=== PATIENT | male | born 1980 | race Two or more races ===

== ENCOUNTER 2020-12-02 10:19 | Inpatient (IN) | payer OTHER ==
[2020-12-02] MEDS ORDERED: ACETAMINOPHEN 1000 MG/100 ML VIAL (NON FORMULARY) IVPB ONE (11:57)
[2020-12-02] MEDS ORDERED: ONDANSETRON 4 MG/2 ML VIAL IVPUSH ONE ×2 (11:57→16:10)
[2020-12-02] MEDS ORDERED: SODIUM CHLORIDE 1,000 ML IV STA (11:57)
[2020-12-02] MEDS ORDERED: ONDANSETRON 4 MG/2 ML VIAL ONE ×2 (12:19→16:21)
[2020-12-02] MEDS ORDERED: ACETAMINOPHEN INJECTION 100 ML IVPB ONE ×2 (12:19→17:38)
[2020-12-02 12:34] LABS: BASO % 0.5 % (0-2.0); EOS % 0.1 % (0-4.5); HEMATOCRIT 51.4 % (35.4-49); HEMOGLOBIN 17.8 GM/dL (11.7-16.9); LYMPH % 15.6 % (8-40); MCH 34.4 pg (25.7-33.7); MCHC 34.7 g/dl (32.0-35.9); MEAN CELL VOLUME 99.1 fl (80-96); MEAN PLT VOLUME 8.7 fl (7.5-11.1); MONO % 6.8 % (3.8-10.2); PLATELET COUNT 201 K/MM3 (134-434); RBC 5.19 M/mm3 (4.00-5.60); RDW 14.1 % (11.9-15.9); WHITE BLOOD COUNT 8.9 K/mm3 (4.0-10.0)
[2020-12-02 12:44] LABS: INR 0.94 (0.83-1.09); PROTHROMBIN TIME (PATIENT) 11.4 SEC (9.7-13.0)
[2020-12-02 12:53] LABS: CHLORIDE 89 mmol/L (98-107); POTASSIUM 3.5 mmol/L (3.5-5.1); SODIUM 134 mmol/L (136-145)
[2020-12-02 13:00] LABS: ALBUMIN 4.4 g/dl (3.4-5.0); ANION GAP 13 MMOL/L (8-16); CALCIUM 10.2 mg/dL (8.5-10.1); CO2 32 mmol/L (21-32); GLUCOSE,RANDOM 91 mg/dL (74-106)
[2020-12-02 13:01] LABS: BLOOD UREA NITROGEN 20.7 mg/dL (7-18)
[2020-12-02 13:03] LABS: SGOT/AST 781 U/L (15-37); SGPT/ALT 458 U/L (13-61)
[2020-12-02 13:04] LABS: CREATININE 1.3 mg/dL (0.55-1.3)
[2020-12-02 13:05] LABS: BILIRUBIN,TOTAL 1.2 mg/dL (0.2-1); TOT PROT 8.4 g/dl (6.4-8.2)
[2020-12-02 13:06] LABS: ALK PHOS 99 U/L (45-117)
[2020-12-02] MEDS ORDERED: POTASSIUM CHLORIDE 20 MEQ in LACTATED RINGERS SOLUTION 1,000 ML IV ONE (15:00)
[2020-12-02] MEDS ORDERED: morphine CARPU-JECT 4 MG/1 ML DISP.SYRIN IVPUSH ONE (16:10)
[2020-12-02] MEDS ORDERED: LACTATED RINGERS SOLUTION 1,000 ML/1,000 ML INFUS.BAG IV SCH ×2 (16:15→16:17)
[2020-12-02] MEDS ORDERED: morphine SULFATE 4 MG/ML VIAL ONE (16:21)
[2020-12-02 16:50] LABS: POTASSIUM 3.4 mmol/L (3.5-5.1)
[2020-12-03 01:02] LABS: MAGNESIUM 2.2 mg/dL (1.8-2.4)
[2020-12-03] MEDS ORDERED: PANTOPRAZOLE 40 MG TABLET ONE (01:58)
[2020-12-03] MEDS: PANTOPRAZOLE 40 MG TABLET PO ONE ×2 (02:00→02:39)
[2020-12-03] MEDS: SODIUM CHLORIDE 1,000 ML IV SCH (03:34)
[2020-12-03 03:38] LABS: ALBUMIN 4.1 g/dl (3.4-5.0)
[2020-12-03 03:41] LABS: BILIRUBIN,DIRECT 0.5 mg/dL (0.0-0.2)
[2020-12-03 03:43] LABS: TOT PROT 7.6 g/dl (6.4-8.2)
[2020-12-03 04:00] VITALS: BMI 25.0
[2020-12-03 04:06] LABS: BASO % 0.2 % (0-2.0); EOS % 0.5 % (0-4.5); HEMATOCRIT 48.3 % (35.4-49); HEMOGLOBIN 16.4 GM/dL (11.7-16.9); MCHC 34.1 g/dl (32.0-35.9); MEAN CELL VOLUME 99.9 fl (80-96); MEAN PLT VOLUME 9.2 fl (7.5-11.1); MONO % 8.2 % (3.8-10.2); NEUT % 74.1 % (42.8-82.8); PLATELET COUNT 185 K/MM3 (134-434); RBC 4.83 M/mm3 (4.00-5.60); RDW 14.1 % (11.9-15.9); WHITE BLOOD COUNT 9.3 K/mm3 (4.0-10.0)
[2020-12-03] MEDS: KCL 10 MEQ IVPB 10 MEQ/100 ML INFUS.BAG IVPB SCH ×3 (04:40→12:41)
[2020-12-03 06:11] LABS: URINE APPEARANCE CLEAR; URINE BILIRUBIN SMALL (NEGATIVE); URINE COLOR DK YELLOW; URINE GLUCOSE (UA) NEGATIVE (NEGATIVE)
[2020-12-03 06:12] LABS: PH,URINE 7.5 (5.0-8.0); URINE KETONE 40 mg/dl (NEGATIVE); URINE LEUK ESTERASE NEGATIVE (NEGATIVE); URINE NITRITE NEGATIVE (NEGATIVE); URINE PROTEIN TRACE (NEGATIVE); URINE UROBILINOGEN 4.0 E.U/dl mg/dL (0.2-1.0)
[2020-12-03 06:13] LABS: HYALINE CASTS 0 /uL (0-3.1); URINE BACTERIA 57.3 /uL (0-1359); URINE RBC 32 /uL (0-23.9); URINE WBC 5.5 /uL (0-25.8)
[2020-12-03] MEDS: POTASSIUM CHLORIDE 10 MEQ PREMIX IVPB (POTASSIUM RIDER) IVPB SCH (07:31)
[2020-12-03 09:18] LABS: BASO % 0.4 % (0-2.0); EOS % 0.6 % (0-4.5); HEMATOCRIT 44.1 % (35.4-49); HEMOGLOBIN 15.2 GM/dL (11.7-16.9); LYMPH % 21.5 % (8-40); MCH 34.5 pg (25.7-33.7); MCHC 34.5 g/dl (32.0-35.9); MEAN CELL VOLUME 99.9 fl (80-96); MEAN PLT VOLUME 8.6 fl (7.5-11.1); MONO % 9.5 % (3.8-10.2); PLATELET COUNT 177 K/MM3 (134-434); RBC 4.41 M/mm3 (4.00-5.60); WHITE BLOOD COUNT 7.6 K/mm3 (4.0-10.0)
[2020-12-03 09:20] LABS: ALBUMIN 3.4 g/dl (3.4-5.0)
[2020-12-03 09:21] LABS: BLOOD UREA NITROGEN 16.1 mg/dL (7-18); MAGNESIUM 2.4 mg/dL (1.8-2.4)
[2020-12-03 09:24] LABS: PHOSPHOROUS 3.5 mg/dL (2.5-4.9)
[2020-12-03 09:25] LABS: BILIRUBIN,TOTAL 0.9 mg/dL (0.2-1); TOT PROT 6.5 g/dl (6.4-8.2)
[2020-12-03 09:27] LABS: CHOLESTEROL 153 mg/dL (50-200)
[2020-12-03 09:28] LABS: LDL CHOLESTEROL (ONLY SJRH) 52 mg/dL (5-100); TRIGLYCERIDES 87 mg/dL (0-150)
[2020-12-03 09:31] LABS: HDL CHOLESTEROL 73 mg/dL (40-60)
[2020-12-03] MEDS ORDERED: CEFTRIAXONE 1 GM in DEXTROSE 5%-WATER - 50 ML IVPB SCH (10:00)
[2020-12-03] MEDS ORDERED: PANTOPRAZOLE SODIUM 40 MG VIAL IVPUSH SCH (10:00)
[2020-12-03] MEDS ORDERED: DEXTROSE 5%-WATER - 50 ML IVPB ONE (10:21)
[2020-12-03] MEDS ORDERED: cefTRIAXone SODIUM 1 GM VIAL ONE (10:21)
[2020-12-03] MEDS: ENOXAPARIN NA (PORCINE) 40 MG/0.4 ML DISP.SYRIN SQ SCH (10:45)
[2020-12-04] MEDS: SODIUM CHLORIDE 1,000 ML IV SCH ×2 (00:20→14:12)
[2020-12-04 08:40] LABS: HEMATOCRIT 42.2 % (35.4-49); HEMOGLOBIN 14.7 GM/dL (11.7-16.9); MCH 34.5 pg (25.7-33.7); MCHC 34.7 g/dl (32.0-35.9); MEAN CELL VOLUME 99.5 fl (80-96); MEAN PLT VOLUME 8.9 fl (7.5-11.1); PLATELET COUNT 171 K/MM3 (134-434); RBC 4.24 M/mm3 (4.00-5.60); RDW 13.9 % (11.9-15.9); WHITE BLOOD COUNT 6.4 K/mm3 (4.0-10.0)
[2020-12-04 08:51] LABS: POTASSIUM 3.8 mmol/L (3.5-5.1)
[2020-12-04] MEDS: ENOXAPARIN NA (PORCINE) 40 MG/0.4 ML DISP.SYRIN SQ SCH (09:02)
[2020-12-04 09:08] LABS: ALBUMIN 3.1 g/dl (3.4-5.0)
[2020-12-04 09:10] LABS: CALCIUM 8.6 mg/dL (8.5-10.1)
[2020-12-04 09:11] LABS: BILIRUBIN,TOTAL 0.8 mg/dL (0.2-1); CREATININE 0.9 mg/dL (0.55-1.3); TOT PROT 5.9 g/dl (6.4-8.2)
[2020-12-04 14:12] LABS: HEP B CORE AB, TOT Negative (Negative)
[2020-12-05] MEDS: SODIUM CHLORIDE 1,000 ML IV SCH ×2 (09:00→14:59)
[2020-12-05 09:31] LABS: HEMATOCRIT 43.2 % (35.4-49); HEMOGLOBIN 14.8 GM/dL (11.7-16.9); MCH 34.2 pg (25.7-33.7); MCHC 34.2 g/dl (32.0-35.9); MEAN PLT VOLUME 9.4 fl (7.5-11.1); PLATELET COUNT 172 K/MM3 (134-434); RBC 4.32 M/mm3 (4.00-5.60); RDW 13.8 % (11.9-15.9); WHITE BLOOD COUNT 6.9 K/mm3 (4.0-10.0)
[2020-12-05] MEDS: ENOXAPARIN NA (PORCINE) 40 MG/0.4 ML DISP.SYRIN SQ SCH (09:36)
[2020-12-05 11:30] LABS: POTASSIUM 3.8 mmol/L (3.5-5.1)
[2020-12-05 11:35] LABS: ALBUMIN 3.1 g/dl (3.4-5.0)
[2020-12-05 11:36] LABS: BLOOD UREA NITROGEN 9.1 mg/dL (7-18)
[2020-12-05 11:39] LABS: CREATININE 0.9 mg/dL (0.55-1.3)
[2020-12-05 11:40] LABS: BILIRUBIN,TOTAL 0.6 mg/dL (0.2-1)
[2020-12-05 11:42] LABS: CALCIUM 8.5 mg/dL (8.5-10.1)
[2020-12-05] MEDS ORDERED: PT OWN MED DRAWER 7, Y5N ONE (16:39)
[2020-12-05] MEDS ORDERED: MAG HYDROX/AL HYDROX/SIMETH 30 ML UNIT-DOSE CUP PO ONE ×2 (20:37→21:00)
[2020-12-06] MEDS: SODIUM CHLORIDE 1,000 ML IV SCH (08:58)
[2020-12-06] MEDS: ENOXAPARIN NA (PORCINE) 40 MG/0.4 ML DISP.SYRIN SQ SCH (09:05)
[2020-12-06 09:50] LABS: BASO % 0.4 % (0-2.0); EOS % 0.5 % (0-4.5); HEMATOCRIT 46.3 % (35.4-49); HEMOGLOBIN 15.9 GM/dL (11.7-16.9); LYMPH % 25.9 % (8-40); MCH 34.1 pg (25.7-33.7); MCHC 34.3 g/dl (32.0-35.9); MEAN CELL VOLUME 99.2 fl (80-96); MEAN PLT VOLUME 9.1 fl (7.5-11.1); MONO % 11.5 % (3.8-10.2); NEUT % 61.7 % (42.8-82.8); PLATELET COUNT 184 K/MM3 (134-434); RBC 4.67 M/mm3 (4.00-5.60); RDW 13.8 % (11.9-15.9); WHITE BLOOD COUNT 6.9 K/mm3 (4.0-10.0)
[2020-12-06 10:13] LABS: ALBUMIN 3.5 g/dl (3.4-5.0); BLOOD UREA NITROGEN 8.7 mg/dL (7-18); CALCIUM 8.7 mg/dL (8.5-10.1)
[2020-12-06 10:16] LABS: BILIRUBIN,TOTAL 0.5 mg/dL (0.2-1); TOT PROT 6.7 g/dl (6.4-8.2)
[2020-12-06] MEDS ORDERED: PANTOPRAZOLE 20 MG TABLET PO SCH (11:15)
[2020-12-06 15:30] VITALS: BP 121/77; PULSE 86; TEMP 98.1
== END 2020-12-06 16:00 | disposition home or self-care (01) | DRG 249 ==
LOC: JER 10:19 → JERBED 22:52 → J5S 12-03 03:16
PROVIDERS: ADMIT Internal Medicine; ATTEND Internal Medicine
DX: K52.9 Noninfective gastroenteritis and colitis, unspecified (principal); E87.6 Hypokalemia; E86.0 Dehydration; K76.0 Fatty (change of) liver, not elsewhere classified; R74.8 Abnormal levels of other serum enzymes
CPT/HCPCS: 36415; 74177-TC; 76705-TC; 80053; 80061; 80074; 80076; 80307; 81003; 82550; 82553; 83690; 83721; 83735; 84100; 84132; 84484; 85025; 85027; 85610; 86704; 86706; 86707; 86708; 86709; 86769; 86803; 87045; 87046; 87086; 87177; 87209; 87340; 93005; 93010; 99285-25; C9803; J0131; Q9967; U0003

== ENCOUNTER 2022-08-15 11:12 | Observation (INO) | payer OTHER ==
[2022-08-15] MEDS ORDERED: MAG HYDROX/AL HYDROX/SIMETH -MYLANTA- ORAL SUSPENSION PO ONE (14:39)
[2022-08-15] MEDS ORDERED: ACETAMINOPHEN 1000 MG/100 ML BAG IVPB ONE (14:39)
[2022-08-15] MEDS ORDERED: ONDANSETRON 4 MG TABLET PO ONE (14:39)
[2022-08-15] MEDS ORDERED: FAMOTIDINE 20 MG TABLET PO ONE (14:39)
[2022-08-15] MEDS ORDERED: SODIUM CHLORIDE 0.9% 500 ML INFUS.BAG IV ONE (14:40)
[2022-08-15 15:57] LABS: HEMATOCRIT 51.8 % (35.4-49); MCH 34.4 pg (25.7-33.7); MCHC 34.8 g/dl (32.0-35.9); MEAN CELL VOLUME 98.7 fl (80-96); MEAN PLT VOLUME 8.1 fl (7.5-11.1); PLATELET COUNT 256 10^3/uL (134-434); RBC 5.25 M/mm3 (4.00-5.60); RDW 14.6 % (11.9-15.9)
[2022-08-15 16:18] LABS: ALBUMIN 4.2 g/dl (3.4-5.0); CALCIUM 9.7 mg/dL (8.5-10.1)
[2022-08-15 16:19] LABS: BLOOD UREA NITROGEN 19.4 mg/dL (7-18)
[2022-08-15 16:21] LABS: CREATININE 1.3 mg/dL (0.55-1.3)
[2022-08-15] MEDS ORDERED: ACETAMINOPHEN INJECTION 100 ML IVPB ONE ×2 (16:35→21:16)
[2022-08-15] MEDS ORDERED: ONDANSETRON 4 MG/2 ML VIAL ONE (16:35)
[2022-08-15] MEDS ORDERED: MAG HYDROX/AL HYDROX/SIMETH 30 ML UNIT-DOSE CUP ONE (16:35)
[2022-08-15] MEDS ORDERED: FAMOTIDINE 20 MG/50 ML IVPB 20 MG/50 ML MG IVPB ONE (16:36)
[2022-08-15] MEDS ORDERED: METOCLOPRAMIDE HCL INJECTION 10 MG/2 ML VIAL IVPUSH ONE (17:58)
[2022-08-15] MEDS ORDERED: LACTATED RINGERS SOLUTION 1000 ML INFUS.BAG IV ONE (17:58)
[2022-08-15] MEDS ORDERED: METOCLOPRAMIDE HCL INJECTION 10 MG/2 ML VIAL ONE (19:06)
[2022-08-15] MEDS ORDERED: TRIMETHOBENZAMIDE HCL 200MG/2ML INJ IM PRN (20:20)
[2022-08-15] MEDS: ACETAMINOPHEN 1000 MG/100 ML BAG IVPB PRN (21:20)
[2022-08-16] MEDS ORDERED: traMADol HCL 50 MG TABLET PO ONE (00:54)
[2022-08-16] MEDS: LACTATED RINGERS SOLUTION 1,000 ML IV SCH ×2 (00:58→22:30)
[2022-08-16] MEDS ORDERED: ACETAMINOPHEN INJECTION 100 ML IVPB ONE (04:21)
[2022-08-16] MEDS: ACETAMINOPHEN 1000 MG/100 ML BAG IVPB PRN (04:24)
[2022-08-16] MEDS ORDERED: PANTOPRAZOLE 40 MG TABLET PO ONE (09:03)
[2022-08-16] MEDS ORDERED: ENOXAPARIN NA (PORCINE) 40 MG/0.4 ML DISP.SYRIN SQ ONE (09:04)
[2022-08-16] MEDS: ENOXAPARIN NA (PORCINE) 40 MG/0.4 ML DISP.SYRIN SQ SCH (09:12)
[2022-08-16] MEDS: PANTOPRAZOLE 40 MG TABLET PO SCH (09:12)
[2022-08-16 10:17] LABS: BASO % 0.2 % (0-2.0); EOS % 0.5 % (0-4.5); HEMATOCRIT 44.5 % (35.4-49); HEMOGLOBIN 15.4 GM/dL (11.7-16.9); LYMPH % 23.9 % (8-40); MCH 34.7 pg (25.7-33.7); MCHC 34.7 g/dl (32.0-35.9); MEAN PLT VOLUME 8.4 fl (7.5-11.1); MONO % 8.5 % (3.8-10.2); NEUT % 66.9 % (42.8-82.8); PLATELET COUNT 186 10^3/uL (134-434); RBC 4.46 M/mm3 (4.00-5.60); RDW 14.2 % (11.9-15.9); WHITE BLOOD COUNT 7.7 K/mm3 (4.0-10.0)
[2022-08-16 10:46] LABS: CHLORIDE 99 mmol/L (98-107); SODIUM 138 mmol/L (136-145)
[2022-08-16 11:08] LABS: ANION GAP 11 MMOL/L (8-16); BLOOD UREA NITROGEN 19.1 mg/dL (7-18); CALCIUM 8.7 mg/dL (8.5-10.1); CO2 28 mmol/L (21-32); GLUCOSE,RANDOM 83 mg/dL (74-106); MAGNESIUM 2.1 mg/dL (1.8-2.4)
[2022-08-16 11:11] LABS: CREATININE 1.1 mg/dL (0.55-1.3); PHOSPHOROUS 2.1 mg/dL (2.5-4.9); SGOT/AST 152 U/L (15-37); SGPT/ALT 120 U/L (13-61)
[2022-08-16 11:12] LABS: BILIRUBIN,TOTAL 1.2 mg/dL (0.2-1); TOT PROT 6.1 g/dl (6.4-8.2)
[2022-08-16 11:14] LABS: ALK PHOS 66 U/L (45-117)
[2022-08-16 11:58] LABS: ALBUMIN 3.2 g/dl (3.4-5.0)
[2022-08-16 12:35] LABS: BILIRUBIN,DIRECT 0.4 mg/dL (0.0-0.2)
[2022-08-16 17:34] VITALS: BMI 28.5
[2022-08-16 18:56] LABS: EPI CELLS 3 /uL (0-25.1); HYALINE CASTS 0 /uL (0-3.1); URINE APPEARANCE CLEAR; URINE BACTERIA 26 /uL (0-1359); URINE BILIRUBIN NEGATIVE (NEGATIVE); URINE COLOR YELLOW; URINE GLUCOSE (UA) NEGATIVE (NEGATIVE); URINE KETONE 1+ (NEGATIVE); URINE LEUK ESTERASE NEGATIVE (NEGATIVE); URINE NITRITE NEGATIVE (NEGATIVE); URINE PROTEIN 1+ (NEGATIVE); URINE RBC 15 /uL (0-23.9); URINE WBC 5 /uL (0-25.8)
[2022-08-17] MEDS: PANTOPRAZOLE 40 MG TABLET PO SCH (09:58)
[2022-08-17 11:35] LABS: BASO % 0.3 % (0-2.0); EOS % 0.6 % (0-4.5); HEMOGLOBIN 15.4 GM/dL (11.7-16.9); LYMPH % 21.1 % (8-40); MCH 33.9 pg (25.7-33.7); MCHC 34.1 g/dl (32.0-35.9); MEAN CELL VOLUME 99.3 fl (80-96); MEAN PLT VOLUME 8.3 fl (7.5-11.1); MONO % 8.4 % (3.8-10.2); NEUT % 69.6 % (42.8-82.8); PLATELET COUNT 198 10^3/uL (134-434); RBC 4.54 M/mm3 (4.00-5.60); RDW 14.4 % (11.9-15.9)
[2022-08-17 11:41] LABS: INR 0.98 (0.83-1.09); PROTHROMBIN TIME (PATIENT) 11.3 SEC (9.7-13.0)
[2022-08-17 13:02] LABS: ERYTHROCYTE SEDIMENTATION RATE 2 mm/hr (0-10)
[2022-08-18] MEDS: LACTATED RINGERS SOLUTION 1,000 ML IV SCH ×2 (00:22→15:51)
[2022-08-18] MEDS: PANTOPRAZOLE 40 MG TABLET PO SCH (09:55)
[2022-08-18] MEDS: ENOXAPARIN NA (PORCINE) 40 MG/0.4 ML DISP.SYRIN SQ SCH (10:46)
[2022-08-18 11:23] LABS: BASO % 0.4 % (0-2.0); EOS % 0.6 % (0-4.5); HEMATOCRIT 46.4 % (35.4-49); HEMOGLOBIN 15.7 GM/dL (11.7-16.9); MCH 33.9 pg (25.7-33.7); MCHC 33.8 g/dl (32.0-35.9); MEAN PLT VOLUME 8.1 fl (7.5-11.1); MONO % 14.1 % (3.8-10.2); NEUT % 58.9 % (42.8-82.8); PLATELET COUNT 186 10^3/uL (134-434); RBC 4.64 M/mm3 (4.00-5.60); RDW 14.4 % (11.9-15.9); WHITE BLOOD COUNT 6.3 K/mm3 (4.0-10.0)
[2022-08-18 12:03] LABS: BLOOD UREA NITROGEN 12.8 mg/dL (7-18); CALCIUM 8.7 mg/dL (8.5-10.1)
[2022-08-18 12:07] LABS: BILIRUBIN,TOTAL 0.7 mg/dL (0.2-1); CREATININE 1.1 mg/dL (0.55-1.3); TOT PROT 5.8 g/dl (6.4-8.2)
[2022-08-18] MEDS ORDERED: BISACODYL 5 MG TABLET.DR (FP) PO ONE (16:00)
[2022-08-18] MEDS ORDERED: PEG 3350/NA SULF BICARB CL/KCL 4000 ML SOLN.RECON PO ONE (17:00)
[2022-08-19] MEDS ORDERED: KETAMINE HCL 500 MG/10 ML VIAL ONE (07:42)
[2022-08-19] MEDS: PANTOPRAZOLE 40 MG TABLET PO SCH (10:53)
[2022-08-19] MEDS: LACTATED RINGERS SOLUTION 1,000 ML IV SCH (13:09)
[2022-08-19 18:35] LABS: BASO % 0.3 % (0-2.0); EOS % 0.1 % (0-4.5); HEMATOCRIT 47.6 % (35.4-49); HEMOGLOBIN 16.2 GM/dL (11.7-16.9); LYMPH % 8.3 % (8-40); MCH 33.6 pg (25.7-33.7); MEAN CELL VOLUME 98.8 fl (80-96); MEAN PLT VOLUME 8.3 fl (7.5-11.1); MONO % 8.9 % (3.8-10.2); NEUT % 82.4 % (42.8-82.8); PLATELET COUNT 213 10^3/uL (134-434); RBC 4.82 M/mm3 (4.00-5.60); RDW 14.1 % (11.9-15.9); WHITE BLOOD COUNT 12.8 K/mm3 (4.0-10.0)
[2022-08-19 18:41] LABS: INR 1.15 (0.83-1.09); PROTHROMBIN TIME (PATIENT) 13.3 SEC (9.7-13.0)
[2022-08-19 18:51] LABS: ALBUMIN 3.2 g/dl (3.4-5.0); CALCIUM 8.5 mg/dL (8.5-10.1)
[2022-08-19 18:53] LABS: BLOOD UREA NITROGEN 8.9 mg/dL (7-18); CALCIUM 8.5 mg/dL (8.5-10.1)
[2022-08-19 18:54] LABS: ALBUMIN 3.2 g/dl (3.4-5.0); BLOOD UREA NITROGEN 9.1 mg/dL (7-18)
[2022-08-19 18:55] LABS: CREATININE 1.2 mg/dL (0.55-1.3)
[2022-08-19 18:56] LABS: BILIRUBIN,DIRECT 0.3 mg/dL (0.0-0.2); BILIRUBIN,TOTAL 0.6 mg/dL (0.2-1); CREATININE 1.2 mg/dL (0.55-1.3); TOT PROT 6.2 g/dl (6.4-8.2)
[2022-08-19 18:58] LABS: TOT PROT 6.2 g/dl (6.4-8.2)
[2022-08-20] MEDS: LACTATED RINGERS SOLUTION 1,000 ML IV SCH (01:00)
[2022-08-20 04:54] VITALS: TEMP 98.3
[2022-08-20] MEDS: ENOXAPARIN NA (PORCINE) 40 MG/0.4 ML DISP.SYRIN SQ SCH (09:54)
[2022-08-20] MEDS: PANTOPRAZOLE 40 MG TABLET PO SCH (09:55)
[2022-08-20 09:59] VITALS: BP 137/74; PULSE 82; RESP 18
[2022-08-20 10:25] LABS: BASO % 0.2 % (0-2.0); EOS % 0.8 % (0-4.5); HEMATOCRIT 48.7 % (35.4-49); HEMOGLOBIN 16.6 GM/dL (11.7-16.9); LYMPH % 22.8 % (8-40); MCH 33.9 pg (25.7-33.7); MCHC 34.1 g/dl (32.0-35.9); MEAN CELL VOLUME 99.5 fl (80-96); MEAN PLT VOLUME 8.5 fl (7.5-11.1); MONO % 9.3 % (3.8-10.2); NEUT % 66.9 % (42.8-82.8); PLATELET COUNT 228 10^3/uL (134-434); RDW 14.1 % (11.9-15.9); WHITE BLOOD COUNT 9.1 K/mm3 (4.0-10.0)
[2022-08-24 08:06] LABS: CREATININE, UR 1.16 g/L (0.30-3.00)
== END 2022-08-20 13:21 | disposition home or self-care (01) ==
LOC: JER 11:12 → INTOOBSV 18:06 → JERBED 18:06 → J6S 08-16 17:18
PROVIDERS: ADMIT Internal Medicine; ATTEND Internal Medicine
PROC: 0DB98ZX Excision of Duodenum, Via Natural or Artificial Opening Endoscopic, Diagnostic (ICD-10-PCS; principal; 2022-08-15)
PROC: 3E033NZ Introduction of Analgesics, Hypnotics, Sedatives into Peripheral Vein, Percutaneous Approach (ICD-10-PCS; 2022-08-15)
PROC: 3E0337Z Introduction of Electrolytic and Water Balance Substance into Peripheral Vein, Percutaneous Approach (ICD-10-PCS; 2022-08-15)
PROC: 3E033GC Introduction of Other Therapeutic Substance into Peripheral Vein, Percutaneous Approach (ICD-10-PCS; 2022-08-15)
PROC: 3E03329 Introduction of Other Anti-infective into Peripheral Vein, Percutaneous Approach (ICD-10-PCS; 2022-08-15)
PROC: 3E023GC Introduction of Other Therapeutic Substance into Muscle, Percutaneous Approach (ICD-10-PCS; 2022-08-15)
DX: K21.9 Gastro-esophageal reflux disease without esophagitis (principal); K29.70 Gastritis, unspecified, without bleeding; E87.8 Other disorders of electrolyte and fluid balance, not elsewhere classified; Z29.8 Encounter for other specified prophylactic measures; R10.9 Unspecified abdominal pain; R79.89 Other specified abnormal findings of blood chemistry; D75.89 Other specified diseases of blood and blood-forming organs; K76.0 Fatty (change of) liver, not elsewhere classified; K52.9 Noninfective gastroenteritis and colitis, unspecified
CPT/HCPCS: 0241U-QW; 36415; 74177-TC; 76705-TC; 80048; 80053; 80076; 81003; 82248; 82525; 82550; 82553; 82570; 82607; 82728; 82746; 83516; 83540; 83550; 83690; 83735; 84100; 85025; 85027; 85610; 85651; 86038; 86140; 86704; 86709; 86803; 86850; 86900; 86901; 87045; 87046; 87205; 87209; 87324; 87340; 87449; 87517; 88305-TC; 93005; 93010; 96361; 96365; 96372; 96375; 96376; 99285-25; G0378; Q9967

== ENCOUNTER 2022-10-24 09:59 | Observation (INO) | payer OTHER ==
[2022-10-24] MEDS ORDERED: SODIUM CHLORIDE 1,000 ML IV ONE ×2 (10:38→12:39)
[2022-10-24] MEDS ORDERED: FAMOTIDINE 20 MG/50 ML IVPB 20 MG in PREMIX 50 IVPB ONE (10:49)
[2022-10-24] MEDS ORDERED: MAG HYDROX/AL HYDROX/SIMETH -MYLANTA- ORAL SUSPENSION PO ONE (10:49)
[2022-10-24] MEDS ORDERED: MAG HYDROX/AL HYDROX/SIMETH 30 ML UNIT-DOSE CUP ONE (11:03)
[2022-10-24] MEDS ORDERED: FAMOTIDINE 20 MG/50 ML IVPB 20 MG/50 ML MG IVPB ONE (11:03)
[2022-10-24 11:56] LABS: ALBUMIN 4.1 g/dl (3.4-5.0); BILIRUBIN,TOTAL 2.1 mg/dl (0.2-1); CALCIUM 9.4 mg/dl (8.5-10); CREATININE 1.2 mg/dl (0.55-1.3); TOT PROT 7.4 g/dl (6.4-8.2)
[2022-10-24 12:34] LABS: HEMATOCRIT 50.5 % (35.4-49); HEMOGLOBIN 17.7 G/dL (11.7-16.9); MCH 35.5 pg (25.7-33.7); MEAN CELL VOLUME 101.5 fl (80-96); MEAN PLT VOLUME 9.2 fl (7.5-11.1); PLATELET COUNT 192.6 10^3/uL (134-434); RBC 4.98 10^6/uL (4.00-5.60); RDW 14.1 % (11.9-15.9); WHITE BLOOD COUNT 10.3 10^3/uL (4.0-10.8)
[2022-10-24] MEDS ORDERED: LORazepam 2 MG/ML SDV VIAL IVPB ONE (12:36)
[2022-10-24 12:43] LABS: EPITHELIAL CELLS FEW /hpf; URINE MUCUS 1+
[2022-10-24] MEDS ORDERED: CEFTRIAXONE 1 GM in DEXTROSE 5%-WATER - 50 ML IVPB ONE (13:15)
[2022-10-24 13:16] LABS: VENOUS BASE EXCESS 6.4 mmol/L (-2-2); VENOUS O2 SATURATION 79.7 % (70-80); VENOUS PCO2 38.9 mmHg (38-52); VENOUS PH 7.503 (7.310-7.410)
[2022-10-24] MEDS ORDERED: cefTRIAXone SODIUM 1 GM VIAL ONE (13:31)
[2022-10-24] MEDS ORDERED: SODIUM CHLORIDE 1,000 ML IV SCH (16:15)
[2022-10-24 16:38] VITALS: BMI 27.8
[2022-10-24 21:06] LABS: OPIATES, URI NEGATIVE (NEGATIVE); URINE BARBITURATES NEGATIVE (NEGATIVE)
[2022-10-24 21:07] LABS: METHADONE, UR NEGATIVE (NEGATIVE); PHENCYCLIDINE,URINE NEGATIVE (NEGATIVE); URINE BENZODIAZEPINES NEGATIVE (NEGATIVE)
[2022-10-24 21:08] LABS: COCAINE, UR NEGATIVE (NEGATIVE)
[2022-10-24 21:13] LABS: URINE AMPHETAMINES NEGATIVE (NEGATIVE)
[2022-10-25 08:16] LABS: INR 1.03 (0.83-1.09); PROTHROMBIN TIME (PATIENT) 11.8 SEC (9.7-13.0)
[2022-10-25 08:24] LABS: ALBUMIN 3.3 g/dl (3.4-5.0); BILIRUBIN,TOTAL 1.2 mg/dl (0.2-1); CALCIUM 8.6 mg/dl (8.5-10); MAGNESIUM 2.1 mg/dL (1.8-2.4); PHOSPHOROUS 2.7 mg/dl (2.5-4.9)
[2022-10-25 09:13] LABS: BASO % 0.5 % (0-2.0); EOS % 0.6 % (0-4.5); HEMATOCRIT 42.9 % (35.4-49); LYMPH % 22.3 % (8-40); MCH 35.5 pg (25.7-33.7); MEAN CELL VOLUME 101.2 fl (80-96); MEAN PLT VOLUME 8.4 fl (7.5-11.1); MONO % 6.9 % (3.8-10.2); NEUT % 69.7 % (42.8-82.8); PLATELET COUNT 174 10^3/uL (134-434); RBC 4.24 M/mm3 (4.00-5.60); WHITE BLOOD COUNT 5.9 K/mm3 (4.0-10.0)
[2022-10-25] MEDS ORDERED: FOLIC ACID INJECTION - 1 MG, THIAMINE HCL 100 MG, MULTIVIT INJECTION ADULT 10 ML in SOD... IVPB ONE (09:35)
[2022-10-25] MEDS: SIMETHICONE 80 MG TAB.CHEW (FP) PO PRN (12:19)
[2022-10-25] MEDS ORDERED: POTASSIUM CHLORIDE TABS 20 MEQ TABLET.ER (FP) PO ONE (15:21)
[2022-10-25] MEDS ORDERED: SODIUM CHLORIDE 1,000 ML with POTASSIUM CHLORIDE 20 MEQ IV SCH (15:27)
[2022-10-26 05:58] VITALS: PULSE 82; RESP 16
[2022-10-26 08:04] LABS: ALBUMIN 3.1 g/dl (3.4-5.0); BILIRUBIN,TOTAL 0.9 mg/dl (0.2-1); CALCIUM 8.3 mg/dl (8.5-10); CREATININE 0.9 mg/dl (0.55-1.3); MAGNESIUM 1.9 mg/dL (1.8-2.4); PHOSPHOROUS 2.6 mg/dl (2.5-4.9); TOT PROT 5.8 g/dl (6.4-8.2)
[2022-10-26] MEDS ORDERED: PANTOPRAZOLE 40 MG TABLET PO SCH (10:00)
[2022-10-26 10:05] LABS: HEMATOCRIT 40.9 % (35.4-49); MCH 35.2 pg (25.7-33.7); MCHC 34.3 g/dl (32.0-35.9); MEAN CELL VOLUME 102.6 fl (80-96); MEAN PLT VOLUME 8.9 fl (7.5-11.1); PLATELET COUNT 161 10^3/uL (134-434); RBC 3.98 M/mm3 (4.00-5.60); RDW 14.7 % (11.9-15.9); WHITE BLOOD COUNT 5.9 K/mm3 (4.0-10.0)
[2022-10-26 10:16] VITALS: BP 126/85; TEMP 98.4
[2022-10-26] MEDS: SIMETHICONE 80 MG TAB.CHEW (FP) PO PRN (11:09)
== END 2022-10-26 14:28 | disposition home or self-care (01) ==
LOC: FER 09:59 → INTOOBSV 14:51 → UNDOADMOB 14:51 → FM/S 14:51
PROVIDERS: ADMIT Internal Medicine; ATTEND Nurse Practitioner Family
PROC: 3E03329 Introduction of Other Anti-infective into Peripheral Vein, Percutaneous Approach (ICD-10-PCS; principal; 2022-10-25)
PROC: 3E033NZ Introduction of Analgesics, Hypnotics, Sedatives into Peripheral Vein, Percutaneous Approach (ICD-10-PCS; 2022-10-25)
PROC: 3E0337Z Introduction of Electrolytic and Water Balance Substance into Peripheral Vein, Percutaneous Approach (ICD-10-PCS; 2022-10-25)
DX: S36.119A Unspecified injury of liver, initial encounter (principal); E87.1 Hypo-osmolality and hyponatremia; D75.1 Secondary polycythemia; E87.3 Alkalosis; Z29.8 Encounter for other specified prophylactic measures; Y84.9 Medical procedure, unspecified as the cause of abnormal reaction of the patient, or of later complication, without mention of misadventure at the time of the procedure; Y93.9 Activity, unspecified
CPT/HCPCS: 0241U-QW; 36415; 74177-TC; 76705-TC; 80053; 80307; 81003; 81015; 82010; 82248; 82550; 82553; 82570; 82728; 82803; 83516; 83540; 83550; 83735; 84100; 84156; 84439; 84443; 84484; 85025; 85027; 85610; 86038; 86704; 86705; 86708; 86709; 87086; 87517; 87522; 93005; 96361; 96365; 96367; 96375; 99285-25; G0378; G0480; Q9967

== ENCOUNTER 2023-04-11 12:31 | Inpatient (IN) | payer OTHER ==
[2023-04-11] MEDS ORDERED: SODIUM CHLORIDE 0.9% 500 ML INFUS.BAG IV ONE (12:48)
[2023-04-11] MEDS ORDERED: FAMOTIDINE 20 MG/50 ML IVPB 20 MG/50 ML MG IVPB ONE ×2 (12:48→13:40)
[2023-04-11] MEDS ORDERED: ONDANSETRON 4 MG/2 ML VIAL IVPUSH ONE (12:48)
[2023-04-11 12:58] VITALS: BMI 27.1
[2023-04-11] MEDS ORDERED: ONDANSETRON 4 MG/2 ML VIAL ONE (12:58)
[2023-04-11 13:54] LABS: HEMATOCRIT 51.4 % (35.4-49); HEMOGLOBIN 17.2 G/dL (11.7-16.9); MCH 35.4 pg (25.7-33.7); MCHC 33.5 g/dl (32.0-35.9); MEAN CELL VOLUME 105.7 fl (80-96); MEAN PLT VOLUME 8.5 fl (7.5-11.1); PLATELET COUNT 163.9 10^3/uL (134-434); RBC 4.86 10^6/uL (4.00-5.60); WHITE BLOOD COUNT 10.7 10^3/uL (4.0-10.8)
[2023-04-11 13:59] LABS: ALBUMIN 4.9 g/dl (3.4-5.0); BILIRUBIN,TOTAL 1.7 mg/dl (0.2-1); BLOOD UREA NITROGEN 16.8 mg/dl (7-18); CALCIUM 9.9 mg/dl (8.5-10.1); MAGNESIUM 1.7 mg/dL (1.8-2.4); POTASSIUM 3.2 mmol/L (3.5-5.1); SGOT/AST 71.6 U/L (15-37); SGPT/ALT 67.2 U/L (7-52); TOT PROT 7.3 g/dl (6.4-8.2)
[2023-04-11 14:05] LABS: PLATELET ESTIMATE ADEQUATE
[2023-04-11] MEDS ORDERED: MAG HYDROX/AL HYDROX/SIMETH 30 ML UNIT-DOSE CUP PO ONE (14:18)
[2023-04-11] MEDS ORDERED: LIDOCAINE VISCOUS 2% ORAL/TOP 15 ML UNIT-DOSE CUP MM ONE (14:18)
[2023-04-11] MEDS ORDERED: POTASSIUM CHLORIDE TABS 20 MEQ TABLET.ER (FP) PO ONE ×2 (14:18→14:23)
[2023-04-11] MEDS ORDERED: MAGNESIUM SULF 50% (8.12 MEQ/2 ML-1 GM VIAL) IVPB ONE (14:19)
[2023-04-11] MEDS ORDERED: MAG HYDROX/AL HYDROX/SIMETH 30 ML UNIT-DOSE CUP ONE (14:23)
[2023-04-11] MEDS ORDERED: LIDOCAINE VISCOUS 2% ORAL/TOP 15 ML UNIT-DOSE CUP ONE (14:23)
[2023-04-11] MEDS ORDERED: MAGNESIUM 1GM/D5W - 1 GM/100 ML IVPB IVPB ONE (14:24)
[2023-04-11] MEDS ORDERED: ONDANSETRON 4 MG/2 ML VIAL IVPUSH PRN (22:10)
[2023-04-11] MEDS ORDERED: DEXTROSE 5%-0.45% SALINE 1,000 ML IV SCH (22:15)
[2023-04-11] MEDS ORDERED: LIDOCAINE VISCOUS 2% ORAL/TOP 15 ML UNIT-DOSE CUP MM PRN (23:15)
[2023-04-11 23:23] LABS: EPITHELIAL CELLS FEW /hpf
[2023-04-11] MEDS: DEXTROSE 5%-0.45% SALINE 1,000 ML IV SCH (23:30)
[2023-04-12 00:34] LABS: URINE BARBITURATES NEGATIVE (NEGATIVE)
[2023-04-12 00:35] LABS: COCAINE, UR NEGATIVE (NEGATIVE); METHADONE, UR NEGATIVE (NEGATIVE); PHENCYCLIDINE,URINE NEGATIVE (NEGATIVE); URINE AMPHETAMINES NEGATIVE (NEGATIVE); URINE BENZODIAZEPINES NEGATIVE (NEGATIVE)
[2023-04-12 00:36] LABS: OPIATES, URI NEGATIVE (NEGATIVE)
[2023-04-12 09:02] LABS: ALBUMIN 4.1 g/dl (3.4-5.0); BILIRUBIN,TOTAL 1.6 mg/dl (0.2-1); BLOOD UREA NITROGEN 16.5 mg/dl (7-18); CALCIUM 9.1 mg/dl (8.5-10.1); MAGNESIUM 2.2 mg/dL (1.8-2.4); POTASSIUM 3.3 mmol/L (3.5-5.1); SGOT/AST 286.3 U/L (15-37); SGPT/ALT 111.2 U/L (7-52)
[2023-04-12] MEDS: ENOXAPARIN NA (PORCINE) 40 MG/0.4 ML DISP.SYRIN SQ SCH (10:24)
[2023-04-12] MEDS: MULTIVITAMINS (DAILY MVI) TABLET (FP) PO SCH (10:26)
[2023-04-12] MEDS: FOLIC ACID 1 MG TABLET (FP) PO SCH (10:26)
[2023-04-12] MEDS: THIAMINE HCL 100 MG TABLET (FP) PO SCH (10:26)
[2023-04-12] MEDS ORDERED: POTASSIUM CHLORIDE TABS 20 MEQ TABLET.ER (FP) PO ONE (10:30)
[2023-04-12 10:36] LABS: BASO % 0.4 % (0-2.0); EOS % 0.2 % (0-4.5); HEMATOCRIT 45.4 % (35.4-49); HEMOGLOBIN 15.4 GM/dL (11.7-16.9); LYMPH % 15.3 % (8-40); MCH 35.2 pg (25.7-33.7); MCHC 33.9 g/dl (32.0-35.9); MONO % 5.3 % (3.8-10.2); NEUT % 78.8 % (42.8-82.8); PLATELET COUNT 173 10^3/uL (134-434); RBC 4.36 M/mm3 (4.00-5.60); RDW 16.1 % (11.9-15.9); WHITE BLOOD COUNT 9.3 K/mm3 (4.0-10.0)
[2023-04-13] MEDS: DEXTROSE 5%-0.45% SALINE 1,000 ML IV SCH (02:00)
[2023-04-13 08:00] LABS: ALBUMIN 3.7 g/dl (3.4-5.0); BILIRUBIN,TOTAL 1.4 mg/dl (0.2-1); BLOOD UREA NITROGEN 12.6 mg/dl (7-18); CALCIUM 8.6 mg/dl (8.5-10.1); CREATININE 0.9 mg/dl (0.6-1.3); POTASSIUM 3.3 mmol/L (3.5-5.1); SGOT/AST 338.8 U/L (15-37); SGPT/ALT 177.2 U/L (7-52); TOT PROT 5.5 g/dl (6.4-8.2)
[2023-04-13 09:06] LABS: BASO % 0.4 % (0-2.0); EOS % 0.5 % (0-4.5); HEMATOCRIT 42.7 % (35.4-49); LYMPH % 21.6 % (8-40); MCH 35.8 pg (25.7-33.7); MEAN CELL VOLUME 102.2 fl (80-96); NEUT % 69.5 % (42.8-82.8); RBC 4.18 M/mm3 (4.00-5.60); RDW 15.1 % (11.9-15.9); WHITE BLOOD COUNT 8.1 K/mm3 (4.0-10.0)
[2023-04-13 09:12] LABS: MEAN PLT VOLUME 9.2 fl (7.5-11.1); PLATELET COUNT 133 10^3/uL (134-434)
[2023-04-13] MEDS: POTASSIUM CHLORIDE TABS 10 MEQ TABLET.ER (FP) PO SCH (10:48)
[2023-04-13] MEDS: FOLIC ACID 1 MG TABLET (FP) PO SCH (10:50)
[2023-04-13] MEDS: PANTOPRAZOLE 40 MG TABLET PO SCH (10:50)
[2023-04-13] MEDS: ENOXAPARIN NA (PORCINE) 40 MG/0.4 ML DISP.SYRIN SQ SCH (10:50)
[2023-04-13] MEDS: MULTIVITAMINS (DAILY MVI) TABLET (FP) PO SCH (10:50)
[2023-04-13] MEDS: THIAMINE HCL 100 MG TABLET (FP) PO SCH (10:50)
[2023-04-14 06:56] VITALS: BP 132/86; PULSE 78; RESP 18; TEMP 98.6
[2023-04-14 08:45] LABS: HEMOGLOBIN 15.5 G/dL (11.7-16.9); MCH 36.4 pg (25.7-33.7); MCHC 34.4 g/dl (32.0-35.9); MEAN CELL VOLUME 105.7 fl (80-96); MEAN PLT VOLUME 8.1 fl (7.5-11.1); PLATELET COUNT 178.1 10^3/uL (134-434); RBC 4.26 10^6/uL (4.00-5.60); RDW 14.6 % (11.9-15.9); WHITE BLOOD COUNT 7.9 10^3/uL (4.0-10.8)
[2023-04-14 08:46] LABS: ALBUMIN 3.9 g/dl (3.4-5.0); BILIRUBIN,TOTAL 1.2 mg/dl (0.2-1); BLOOD UREA NITROGEN 12.5 mg/dl (7-18); CALCIUM 8.9 mg/dl (8.5-10.1); POTASSIUM 3.8 mmol/L (3.5-5.1); SGOT/AST 214.8 U/L (15-37); SGPT/ALT 177.3 U/L (7-52); TOT PROT 5.6 g/dl (6.4-8.2)
[2023-04-14 08:49] LABS: PLATELET ESTIMATE ADEQUATE
[2023-04-14] MEDS: THIAMINE HCL 100 MG TABLET (FP) PO SCH (10:10)
[2023-04-14] MEDS: MULTIVITAMINS (DAILY MVI) TABLET (FP) PO SCH (10:10)
[2023-04-14] MEDS: PANTOPRAZOLE 40 MG TABLET PO SCH (10:10)
[2023-04-14] MEDS: ENOXAPARIN NA (PORCINE) 40 MG/0.4 ML DISP.SYRIN SQ SCH ×2 (10:10→11:03)
[2023-04-14] MEDS: FOLIC ACID 1 MG TABLET (FP) PO SCH (10:11)
[2023-04-14] MEDS: POTASSIUM CHLORIDE TABS 10 MEQ TABLET.ER (FP) PO SCH (11:04)
== END 2023-04-14 15:32 | disposition home or self-care (01) | DRG 280 ==
LOC: FER 12:31 → FM/S 15:58
PROVIDERS: ADMIT Internal Medicine
DX: K70.10 Alcoholic hepatitis without ascites (principal); G62.1 Alcoholic polyneuropathy; R16.0 Hepatomegaly, not elsewhere classified; F10.20 Alcohol dependence, uncomplicated; K21.9 Gastro-esophageal reflux disease without esophagitis; R10.9 Unspecified abdominal pain; R11.2 Nausea with vomiting, unspecified; K76.0 Fatty (change of) liver, not elsewhere classified
CPT/HCPCS: 0241U-QW; 36415; 71045-TC-FY; 74181-TC; 76705-TC; 80053; 80307; 81003; 81015; 83690; 83735; 84484; 85025; 85027; 87086; 93005; 99285-25

== ENCOUNTER 2023-05-14 12:47 | Observation (INO) | payer OTHER ==
[2023-05-14] MEDS ORDERED: MAG HYDROX/AL HYDROX/SIMETH 30 ML UNIT-DOSE CUP PO ONE (13:13)
[2023-05-14] MEDS ORDERED: SODIUM CHLORIDE 0.9% 1000 ML INFUS.BAG IV ONE (13:13)
[2023-05-14] MEDS ORDERED: ONDANSETRON 4 MG/2 ML VIAL IVPUSH ONE (13:13)
[2023-05-14] MEDS ORDERED: FAMOTIDINE 20 MG/50 ML IVPB 20 MG/50 ML MG IVPB ONE ×2 (13:13→13:44)
[2023-05-14] MEDS ORDERED: ONDANSETRON 4 MG/2 ML VIAL ONE (13:44)
[2023-05-14] MEDS ORDERED: MAG HYDROX/AL HYDROX/SIMETH 30 ML UNIT-DOSE CUP ONE (13:44)
[2023-05-14 14:33] LABS: HEMATOCRIT 50.4 % (35.4-49); HEMOGLOBIN 17.1 G/dL (11.7-16.9); MCH 34.9 pg (25.7-33.7); MCHC 33.8 g/dl (32.0-35.9); MEAN CELL VOLUME 103.1 fl (80-96); MEAN PLT VOLUME 9.1 fl (7.5-11.1); PLATELET COUNT 233.8 10^3/uL (134-434); RBC 4.89 10^6/uL (4.00-5.60); RDW 13.5 % (11.9-15.9); WHITE BLOOD COUNT 10.4 10^3/uL (4.0-10.8)
[2023-05-14 15:09] LABS: ALBUMIN 4.2 g/dl (3.4-5.0); ALK PHOS 89 U/L (45-117); ANION GAP 21 MMOL/L (8-16); BLOOD UREA NITROGEN 22.5 mg/dl (7-18); CALCIUM 9.6 mg/dl (8.5-10.1); CHLORIDE 70 mmol/L (98-107); CO2 35 mmol/L (21-32); CREATININE 0.9 mg/dl (0.6-1.3); GLUCOSE,RANDOM 116 mg/dl (74-106); POTASSIUM 2.7 mmol/L (3.5-5.1); SGOT/AST 62.1 U/L (15-37); SGPT/ALT 43.1 U/L (7-52); SODIUM 126 mmol/L (136-145); TOT PROT 6.9 g/dl (6.4-8.2)
[2023-05-14] MEDS ORDERED: POTASSIUM CHLORIDE ORAL LIQUID 20 MEQ/15 ML PO ONE (15:10)
[2023-05-14] MEDS ORDERED: MAGNESIUM SULF 50% (8.12 MEQ/2 ML-1 GM VIAL) IVPB ONE (15:10)
[2023-05-14 15:17] LABS: INR 1.05 (0.83-1.09); PROTHROMBIN TIME (PATIENT) 12.2 SEC (9.7-13.0)
[2023-05-14] MEDS ORDERED: MAGNESIUM SULFATE IN WATER 2 GM/50 ML IVPB IVPB ONE (15:17)
[2023-05-14] MEDS ORDERED: KCL 10 MEQ IVPB 30 MEQ/300 ML INFUS.BAG IVPB ONE (15:17)
[2023-05-14] MEDS ORDERED: POTASSIUM CHLORIDE ORAL LIQUID 20 MEQ/15 ML ONE (15:17)
[2023-05-14 15:19] LABS: ACTIVATED PTT 24.3 SECONDS (25.2-36.5)
[2023-05-14 15:26] LABS: BILIRUBIN,TOTAL 1.2 mg/dL (0.2-1)
[2023-05-14 15:40] LABS: EPITHELIAL CELLS FEW /hpf
[2023-05-14 15:41] LABS: URINE MUCUS 1+
[2023-05-14] MEDS: KCL 10 MEQ IVPB 10 MEQ/100 ML INFUS.BAG IVPB SCH ×3 (16:38→18:45)
[2023-05-14 19:00] VITALS: BMI 26.2
[2023-05-15] MEDS ORDERED: ACETAMINOPHEN 1000 MG/100 ML BAG IVPB PRN (01:52)
[2023-05-15] MEDS ORDERED: MELATONIN 5 MG TABLETS PO PRN (01:52)
[2023-05-15] MEDS: THIAMINE HCL 100 MG TABLET (FP) PO SCH (10:57)
[2023-05-15] MEDS: MULTIVITAMINS (DAILY MVI) TABLET (FP) PO SCH (10:57)
[2023-05-15] MEDS: KCL 10 MEQ IVPB 10 MEQ/100 ML INFUS.BAG IVPB SCH ×3 (10:57→15:05)
[2023-05-15] MEDS: FOLIC ACID 1 MG TABLET (FP) PO SCH (10:57)
[2023-05-15 11:20] LABS: BLOOD UREA NITROGEN 13.9 mg/dl (7-18); CALCIUM 9.2 mg/dl (8.5-10.1); POTASSIUM 3.1 mmol/L (3.5-5.1)
[2023-05-15 11:32] LABS: HEMATOCRIT 42.4 % (35.4-49); HEMOGLOBIN 14.3 G/dL (11.7-16.9); MCHC 33.7 g/dl (32.0-35.9); MEAN CELL VOLUME 103.8 fl (80-96); MEAN PLT VOLUME 9.3 fl (7.5-11.1); PLATELET COUNT 204.3 10^3/uL (134-434); RBC 4.08 10^6/uL (4.00-5.60); RDW 13.8 % (11.9-15.9); WHITE BLOOD COUNT 6.9 10^3/uL (4.0-10.8)
[2023-05-15] MEDS ORDERED: POTASSIUM CHLORIDE ORAL LIQUID 20 MEQ/15 ML PO ONE (12:00)
[2023-05-15] MEDS ORDERED: POTASSIUM CHLORIDE 10 MEQ in SODIUM CHLORIDE 1,000 ML IV SCH (12:30)
[2023-05-15] MEDS: HEPARIN NA (PORCINE) 5,000 UNITS/ML 1ML VIAL SQ SCH ×3 (16:48→21:10)
[2023-05-15] MEDS: NAPH,MB-DB/K PH,MBDB POWDER PACKET PO SCH ×2 (16:49→21:10)
[2023-05-16] MEDS: ACETAMINOPHEN 1000 MG/100 ML BAG IVPB PRN (02:57)
[2023-05-16] MEDS: HEPARIN NA (PORCINE) 5,000 UNITS/ML 1ML VIAL SQ SCH ×3 (05:05→21:39)
[2023-05-16] MEDS: NAPH,MB-DB/K PH,MBDB POWDER PACKET PO SCH ×3 (05:30→21:39)
[2023-05-16] MEDS: POTASSIUM CHLORIDE TABS 10 MEQ TABLET.ER (FP) PO SCH (09:24)
[2023-05-16] MEDS: FOLIC ACID 1 MG TABLET (FP) PO SCH (09:25)
[2023-05-16] MEDS: THIAMINE HCL 100 MG TABLET (FP) PO SCH (09:25)
[2023-05-16] MEDS: MULTIVITAMINS (DAILY MVI) TABLET (FP) PO SCH (09:25)
[2023-05-16 11:11] LABS: BASO % 0.5 % (0-2.0); EOS % 0.3 % (0-4.5); HEMATOCRIT 40.7 % (35.4-49); LYMPH % 30.5 % (8-40); MCH 34.8 pg (25.7-33.7); MCHC 34.5 g/dl (32.0-35.9); MEAN PLT VOLUME 9.6 fl (7.5-11.1); MONO % 9.1 % (3.8-10.2); NEUT % 59.6 % (42.8-82.8); PLATELET COUNT 215 10^3/uL (134-434); RBC 4.03 M/mm3 (4.00-5.60); RDW 14.2 % (11.9-15.9); WHITE BLOOD COUNT 6.9 K/mm3 (4.0-10.0)
[2023-05-16 11:17] LABS: ALBUMIN 3.4 g/dl (3.4-5.0); BLOOD UREA NITROGEN 11.2 mg/dl (7-18); POTASSIUM 3.5 mmol/L (3.5-5.1); SGOT/AST 191.8 U/L (15-37); SGPT/ALT 100.6 U/L (7-52); TOT PROT 5.4 g/dl (6.4-8.2)
[2023-05-16] MEDS ORDERED: LACTATED RINGERS SOLUTION 1,000 ML/1,000 ML INFUS.BAG IV SCH (12:15)
[2023-05-16 12:19] LABS: ANISOCYTOSIS 1+; MACROCYTOSIS 1+
[2023-05-16] MEDS ORDERED: SODIUM CHLORIDE 0.9%/KCL 20 MEQ/1,000 ML INFUS.BAG IV SCH (13:30)
[2023-05-16 13:36] LABS: BILIRUBIN,TOTAL 0.6 mg/dL (0.2-1)
[2023-05-17] MEDS: ACETAMINOPHEN 1000 MG/100 ML BAG IVPB PRN (00:34)
[2023-05-17] MEDS: MAG HYDROX/AL HYDROX/SIMETH 30 ML UNIT-DOSE CUP PO PRN ×2 (00:57→10:09)
[2023-05-17 01:54] VITALS: RESP 18
[2023-05-17] MEDS: HEPARIN NA (PORCINE) 5,000 UNITS/ML 1ML VIAL SQ SCH ×2 (06:20→16:43)
[2023-05-17] MEDS: NAPH,MB-DB/K PH,MBDB POWDER PACKET PO SCH ×2 (06:20→16:43)
[2023-05-17 07:52] LABS: HEMOGLOBIN 13.6 G/dL (11.7-16.9); MCH 34.8 pg (25.7-33.7); MCHC 33.1 g/dl (32.0-35.9); MEAN CELL VOLUME 105.2 fl (80-96); MEAN PLT VOLUME 8.7 fl (7.5-11.1); PLATELET COUNT 229.8 10^3/uL (134-434); RDW 13.2 % (11.9-15.9); WHITE BLOOD COUNT 9.9 10^3/uL (4.0-10.8)
[2023-05-17 08:00] LABS: ALBUMIN 3.3 g/dl (3.4-5.0); BLOOD UREA NITROGEN 8.2 mg/dl (7-18); CALCIUM 8.8 mg/dl (8.5-10.1); CREATININE 0.8 mg/dl (0.6-1.3); MAGNESIUM 1.5 mg/dL (1.8-2.4); PHOSPHOROUS 2.86 (2.5-4.9); POTASSIUM 3.7 mmol/L (3.5-5.1); SGOT/AST 91.1 U/L (15-37); SGPT/ALT 86.9 U/L (7-52); TOT PROT 5.2 g/dl (6.4-8.2)
[2023-05-17] MEDS ORDERED: MAGNESIUM OXIDE 400 MG TABLET (FP) PO ONE (08:30)
[2023-05-17] MEDS: MULTIVITAMINS (DAILY MVI) TABLET (FP) PO SCH (10:08)
[2023-05-17] MEDS: FOLIC ACID 1 MG TABLET (FP) PO SCH (10:09)
[2023-05-17] MEDS: THIAMINE HCL 100 MG TABLET (FP) PO SCH (10:09)
[2023-05-17] MEDS: POTASSIUM CHLORIDE TABS 10 MEQ TABLET.ER (FP) PO SCH (10:09)
[2023-05-17 11:04] LABS: BILIRUBIN,TOTAL 0.4 mg/dL (0.2-1)
[2023-05-17 14:40] VITALS: BP 120/72; PULSE 103; TEMP 98.2
== END 2023-05-17 16:08 | disposition home or self-care (01) ==
LOC: FER 12:47 → FM/S 15:18
PROVIDERS: ADMIT Internal Medicine; ATTEND Internal Medicine
PROC: 3E033GC Introduction of Other Therapeutic Substance into Peripheral Vein, Percutaneous Approach (ICD-10-PCS; principal; 2023-05-14)
PROC: 3E033NZ Introduction of Analgesics, Hypnotics, Sedatives into Peripheral Vein, Percutaneous Approach (ICD-10-PCS; 2023-05-14)
PROC: 3E0337Z Introduction of Electrolytic and Water Balance Substance into Peripheral Vein, Percutaneous Approach (ICD-10-PCS; 2023-05-14)
DX: E86.0 Dehydration (principal); F10.99 Alcohol use, unspecified with unspecified alcohol-induced disorder; K21.00 Gastro-esophageal reflux disease with esophagitis, without bleeding; E87.6 Hypokalemia; E87.1 Hypo-osmolality and hyponatremia; K76.0 Fatty (change of) liver, not elsewhere classified; R53.1 Weakness; I45.81 Long QT syndrome; K70.10 Alcoholic hepatitis without ascites
CPT/HCPCS: 0241U-QW; 36415; 71046-TC-FY; 80048; 80053; 80307; 81003; 81015; 82962; 83735; 84100; 84484; 85025; 85027; 85610; 85730; 93005; 96365; 96367; 96368; 96375; 96376; 99285-25; G0378; J1644

== ENCOUNTER 2023-08-02 20:15 | Inpatient (IN) | payer BC, OTHER ==
[2023-08-02] MEDS ORDERED: ONDANSETRON 4 MG/2 ML VIAL IVPB ONE (20:38)
[2023-08-02] MEDS ORDERED: SODIUM CHLORIDE 1,000 ML IV ONE ×2 (20:38→21:08)
[2023-08-02] MEDS ORDERED: ONDANSETRON 4 MG/2 ML VIAL ONE (20:42)
[2023-08-02 20:54] LABS: HEMATOCRIT 54.3 % (35.4-49); HEMOGLOBIN 18.3 G/dL (11.7-16.9); MCHC 33.7 g/dl (32.0-35.9); MEAN CELL VOLUME 103.8 fl (80-96); MEAN PLT VOLUME 8.2 fl (7.5-11.1); PLATELET COUNT 206.1 10^3/uL (134-434); RBC 5.23 10^6/uL (4.00-5.60); RDW 14.3 % (11.9-15.9); WHITE BLOOD COUNT 11.3 10^3/uL (4.0-10.8)
[2023-08-02 21:10] LABS: ALBUMIN 5.2 g/dl (3.4-5.0); CALCIUM 10.3 mg/dl (8.5-10.1); MAGNESIUM 1.9 mg/dL (1.8-2.4); PHOSPHOROUS 2.6 (2.5-4.9); POTASSIUM 3.8 mmol/L (3.5-5.1); TOT PROT 7.7 g/dl (6.4-8.2)
[2023-08-02] MEDS ORDERED: METOCLOPRAMIDE HCL INJECTION 10 MG/2 ML VIAL IVPUSH ONE (21:31)
[2023-08-02] MEDS ORDERED: METOCLOPRAMIDE HCL INJECTION 10 MG/2 ML VIAL ONE (21:31)
[2023-08-02 23:39] VITALS: BMI 27.1
[2023-08-02] MEDS: DEXTROSE 5%-0.45% SALINE 1,000 ML IV SCH (23:57)
[2023-08-03] MEDS ORDERED: ACETAMINOPHEN 1000 MG/100 ML BAG IVPB ONE (04:49)
[2023-08-03] MEDS ORDERED: ONDANSETRON 4 MG/2 ML VIAL IVPUSH PRN (07:16)
[2023-08-03 09:41] LABS: ALBUMIN 3.9 g/dl (3.4-5.0); BILIRUBIN,TOTAL 1.1 mg/dl (0.2-1); CALCIUM 8.6 mg/dl (8.5-10.1); CREATININE 0.9 mg/dl (0.6-1.3); POTASSIUM 3.5 mmol/L (3.5-5.1); TOT PROT 5.6 g/dl (6.4-8.2)
[2023-08-03] MEDS: POLYETHYLENE GLYCOL (HEALTHYLAX) 3350 17 GM PACKET PO SCH ×2 (09:41→21:40)
[2023-08-03] MEDS: PANTOPRAZOLE SODIUM 40 MG VIAL IVPUSH SCH (09:41)
[2023-08-03] MEDS: THIAMINE HCL 200 MG/2 ML VIAL IVPB SCH (09:42)
[2023-08-03] MEDS ORDERED: ACETAMINOPHEN 500 MG TABLET (FP) PO ONE (10:15)
[2023-08-03 10:31] LABS: BASO % 0.2 % (0-2.0); EOS % 0.1 % (0-4.5); HEMATOCRIT 42.7 % (35.4-49); HEMOGLOBIN 14.4 GM/dL (11.7-16.9); LYMPH % 14.3 % (8-40); MCH 34.6 pg (25.7-33.7); MCHC 33.8 g/dl (32.0-35.9); MEAN CELL VOLUME 102.5 fl (80-96); MEAN PLT VOLUME 8.7 fl (7.5-11.1); NEUT % 74.4 % (42.8-82.8); PLATELET COUNT 174 10^3/uL (134-434); RBC 4.17 M/mm3 (4.00-5.60); RDW 15.5 % (11.9-15.9); WHITE BLOOD COUNT 8.3 K/mm3 (4.0-10.0)
[2023-08-04] MEDS: DEXTROSE 5%-0.45% SALINE 1,000 ML IV SCH ×2 (06:06→23:49)
[2023-08-04 08:31] LABS: ALBUMIN 3.9 g/dl (3.4-5.0); BILIRUBIN,TOTAL 1.5 mg/dl (0.2-1); CALCIUM 8.9 mg/dl (8.5-10.1); CREATININE 0.9 mg/dl (0.6-1.3); POTASSIUM 3.7 mmol/L (3.5-5.1); TOT PROT 6.1 g/dl (6.4-8.2)
[2023-08-04 09:32] LABS: BASO % 0.2 % (0-2.0); EOS % 0.1 % (0-4.5); HEMATOCRIT 45.6 % (35.4-49); HEMOGLOBIN 15.1 GM/dL (11.7-16.9); LYMPH % 16.3 % (8-40); MCH 34.5 pg (25.7-33.7); MCHC 33.1 g/dl (32.0-35.9); MEAN CELL VOLUME 104.2 fl (80-96); MEAN PLT VOLUME 8.7 fl (7.5-11.1); MONO % 4.8 % (3.8-10.2); NEUT % 78.6 % (42.8-82.8); PLATELET COUNT 165 10^3/uL (134-434); RBC 4.38 M/mm3 (4.00-5.60); RDW 14.6 % (11.9-15.9); WHITE BLOOD COUNT 9.4 K/mm3 (4.0-10.0)
[2023-08-04] MEDS: PANTOPRAZOLE SODIUM 40 MG VIAL IVPUSH SCH (10:33)
[2023-08-04] MEDS: THIAMINE HCL 200 MG/2 ML VIAL IVPB SCH (10:34)
[2023-08-04] MEDS: POLYETHYLENE GLYCOL (HEALTHYLAX) 3350 17 GM PACKET PO SCH ×2 (10:34→21:08)
[2023-08-04] MEDS: HEPARIN NA (PORCINE) 5,000 UNITS/ML 1ML VIAL SQ SCH (21:08)
[2023-08-05] MEDS: HEPARIN NA (PORCINE) 5,000 UNITS/ML 1ML VIAL SQ SCH ×3 (07:05→21:37)
[2023-08-05 08:44] LABS: ALBUMIN 3.8 g/dl (3.4-5.0); BILIRUBIN,TOTAL 1.1 mg/dl (0.2-1); CALCIUM 8.7 mg/dl (8.5-10.1); CREATININE 0.8 mg/dl (0.6-1.3); POTASSIUM 3.4 mmol/L (3.5-5.1); TOT PROT 5.9 g/dl (6.4-8.2)
[2023-08-05] MEDS: POLYETHYLENE GLYCOL (HEALTHYLAX) 3350 17 GM PACKET PO SCH ×2 (09:39→21:41)
[2023-08-05] MEDS: THIAMINE HCL 200 MG/2 ML VIAL IVPB SCH (09:39)
[2023-08-05] MEDS: PANTOPRAZOLE SODIUM 40 MG VIAL IVPUSH SCH (09:39)
[2023-08-05] MEDS ORDERED: SUMAtriptan SUCCINATE 25 MG TABLET PO PRN (10:06)
[2023-08-05] MEDS ORDERED: POTASSIUM CHLORIDE TABS 10 MEQ TABLET.ER (FP) PO ONE (10:08)
[2023-08-05 12:19] LABS: HEMATOCRIT 44.2 % (35.4-49); HEMOGLOBIN 15.5 GM/dL (11.7-16.9); MCH 35.7 pg (25.7-33.7); MEAN PLT VOLUME 8.7 fl (7.5-11.1); PLATELET COUNT 159 10^3/uL (134-434); RBC 4.34 M/mm3 (4.00-5.60); RDW 14.5 % (11.9-15.9); WHITE BLOOD COUNT 5.8 K/mm3 (4.0-10.0)
[2023-08-05] MEDS: LIDOCAINE 5% TOPICAL PATCH TP SCH (14:22)
[2023-08-05] MEDS: LOSARTAN POTASSIUM 25 MG TABLET PO SCH (14:22)
[2023-08-05] MEDS: FOLIC ACID 1 MG TABLET (FP) PO SCH (14:22)
[2023-08-05] MEDS: MULTIVITAMINS (DAILY MVI) TABLET (FP) PO SCH (14:22)
[2023-08-05] MEDS: CYANOCOBALAMIN (VITAMIN B-12) 1000 MCG/1 ML VIAL IM SCH (14:24)
[2023-08-05] MEDS ORDERED: POTASSIUM CHLORIDE ORAL LIQUID 20 MEQ/15 ML PO ONE (15:50)
[2023-08-05] MEDS ORDERED: LIDOCAINE PATCH REMOVAL MC SCH (22:00)
[2023-08-06] MEDS: DEXTROSE 5%-0.45% SALINE 1,000 ML IV SCH (00:17)
[2023-08-06 05:23] VITALS: RESP 16
[2023-08-06] MEDS: HEPARIN NA (PORCINE) 5,000 UNITS/ML 1ML VIAL SQ SCH (06:59)
[2023-08-06] MEDS ORDERED: PANTOPRAZOLE 40 MG TABLET PO SCH (10:00)
[2023-08-06] MEDS ORDERED: THIAMINE HCL 100 MG TABLET (FP) PO SCH (10:00)
[2023-08-06] MEDS: FOLIC ACID 1 MG TABLET (FP) PO SCH (10:11)
[2023-08-06] MEDS: MULTIVITAMINS (DAILY MVI) TABLET (FP) PO SCH (10:11)
[2023-08-06] MEDS: CYANOCOBALAMIN (VITAMIN B-12) 1000 MCG/1 ML VIAL IM SCH (10:15)
[2023-08-06] MEDS: LIDOCAINE 5% TOPICAL PATCH TP SCH (10:23)
[2023-08-06] MEDS: LOSARTAN POTASSIUM 25 MG TABLET PO SCH (10:23)
[2023-08-06] MEDS: POLYETHYLENE GLYCOL (HEALTHYLAX) 3350 17 GM PACKET PO SCH (10:23)
[2023-08-06 10:33] LABS: ALBUMIN 3.7 g/dl (3.4-5.0); BILIRUBIN,TOTAL 0.9 mg/dl (0.2-1); CALCIUM 8.7 mg/dl (8.5-10.1)
[2023-08-06 10:58] VITALS: BP 133/97; PULSE 88; TEMP 98.3
== END 2023-08-06 14:04 | disposition home or self-care (01) | DRG 392 ==
LOC: FER 20:15 → FM/S 23:08 → OBSVTOIN 08-04 11:51
PROVIDERS: ADMIT Internal Medicine
DX: K29.20 Alcoholic gastritis without bleeding (principal); K70.10 Alcoholic hepatitis without ascites; I10 Essential (primary) hypertension; E78.5 Hyperlipidemia, unspecified; K21.9 Gastro-esophageal reflux disease without esophagitis; F39 Unspecified mood [affective] disorder; G62.1 Alcoholic polyneuropathy; R80.9 Proteinuria, unspecified
CPT/HCPCS: 36415; 74176-TC; 74181-TC; 80048; 80053; 81003; 81015; 82550; 82553; 82570; 82607; 82746; 83690; 83735; 84100; 84156; 84439; 84443; 84484; 85025; 85027; 93005; 99285-25; G0378

== ENCOUNTER 2023-09-04 16:58 | Observation (INO) | payer BC, OTHER ==
[2023-09-04] MEDS ORDERED: LACTATED RINGERS SOLUTION 1,000 ML IV STA (17:22)
[2023-09-04] MEDS ORDERED: FAMOTIDINE 20 MG/50 ML IVPB 20 MG/50 ML MG IVPB ONE ×2 (17:22→18:08)
[2023-09-04] MEDS ORDERED: MAG HYDROX/AL HYDROX/SIMETH 30 ML UNIT-DOSE CUP PO ONE (17:23)
[2023-09-04] MEDS ORDERED: MAG HYDROX/AL HYDROX/SIMETH 30 ML UNIT-DOSE CUP ONE (18:09)
[2023-09-04 18:24] LABS: HEMATOCRIT 53.7 % (35.4-49); HEMOGLOBIN 18.3 G/dL (11.7-16.9); MCH 34.9 pg (25.7-33.7); MCHC 34.1 g/dl (32.0-35.9); MEAN CELL VOLUME 102.2 fl (80-96); MEAN PLT VOLUME 8.9 fl (7.5-11.1); PLATELET COUNT 242.6 10^3/uL (134-434); RBC 5.25 10^6/uL (4.00-5.60); RDW 13.6 % (11.9-15.9); WHITE BLOOD COUNT 10.8 10^3/uL (4.0-10.8)
[2023-09-04 18:34] LABS: PLATELET ESTIMATE ADEQUATE
[2023-09-04 18:40] LABS: BILIRUBIN,TOTAL 0.9 mg/dl (0.2-1); CALCIUM 10.5 mg/dl (8.5-10.1); POTASSIUM 3.3 mmol/L (3.5-5.1)
[2023-09-04] MEDS ORDERED: SODIUM CHLORIDE 0.9% 500 ML INFUS.BAG IV ONE (19:07)
[2023-09-04] MEDS ORDERED: SODIUM CHLORIDE 1,000 ML IV ONE (19:28)
[2023-09-04 21:19] LABS: ALBUMIN 4.2 g/dl (3.4-5.0); BILIRUBIN,TOTAL 0.8 mg/dl (0.2-1); CALCIUM 9.1 mg/dl (8.5-10.1); CREATININE 0.9 mg/dl (0.6-1.3); POTASSIUM 3.3 mmol/L (3.5-5.1); TOT PROT 6.6 g/dl (6.4-8.2)
[2023-09-04 21:46] VITALS: RESP 18
[2023-09-04] MEDS ORDERED: ONDANSETRON 4 MG/2 ML VIAL IVPUSH PRN (23:24)
[2023-09-04] MEDS ORDERED: ACETAMINOPHEN 325 MG TABLET (FP) PO PRN (23:24)
[2023-09-04] MEDS ORDERED: DOCUSATE SODIUM 100 MG CAPSULE (FP) PO PRN (23:24)
[2023-09-04] MEDS ORDERED: KCL 10 MEQ IVPB 10 MEQ/100 ML INFUS.BAG IVPB ONE (23:24)
[2023-09-04] MEDS ORDERED: ALPRAZolam 0.25 MG TABLET PO PRN (23:28)
[2023-09-05 00:02] VITALS: BMI 27.5
[2023-09-05] MEDS ORDERED: MELATONIN 5 MG TABLETS PO PRN (01:24)
[2023-09-05] MEDS: KCL 10 MEQ IVPB 10 MEQ/100 ML INFUS.BAG IVPB SCH ×2 (01:25→02:28)
[2023-09-05] MEDS: MAG HYDROX/AL HYDROX/SIMETH 30 ML UNIT-DOSE CUP PO PRN ×2 (01:35→06:21)
[2023-09-05 08:36] LABS: HEMATOCRIT 43.5 % (35.4-49); HEMOGLOBIN 14.4 G/dL (11.7-16.9); MCH 33.8 pg (25.7-33.7); MCHC 33.1 g/dl (32.0-35.9); MEAN CELL VOLUME 102.3 fl (80-96); MEAN PLT VOLUME 9.1 fl (7.5-11.1); PLATELET COUNT 206.9 10^3/uL (134-434); RBC 4.25 10^6/uL (4.00-5.60); RDW 13.6 % (11.9-15.9); WHITE BLOOD COUNT 8.3 10^3/uL (4.0-10.8)
[2023-09-05] MEDS ORDERED: MULTIVITAMINS (DAILY MVI) TABLET (FP) PO SCH (10:00)
[2023-09-05] MEDS ORDERED: THIAMINE HCL 100 MG TABLET (FP) PO SCH (10:00)
[2023-09-05] MEDS ORDERED: PANTOPRAZOLE 40 MG TABLET PO SCH (10:00)
[2023-09-05] MEDS ORDERED: FOLIC ACID 1 MG TABLET (FP) PO SCH (10:00)
[2023-09-05 10:55] LABS: CALCIUM 8.8 mg/dl (8.5-10.1); MAGNESIUM 1.9 mg/dL (1.8-2.4); PHOSPHOROUS 2.6 (2.5-4.9); POTASSIUM 3.1 mmol/L (3.5-5.1)
[2023-09-05] MEDS ORDERED: POTASSIUM CHLORIDE TABS 20 MEQ TABLET.ER (FP) PO ONE (13:41)
[2023-09-05 16:13] VITALS: BP 128/77; PULSE 108; TEMP 98.2
== END 2023-09-05 16:21 | disposition home or self-care (01) ==
LOC: FER 16:58 → FM/S 21:32
PROVIDERS: ADMIT Internal Medicine; ATTEND Internal Medicine
PROC: 3E033GC Introduction of Other Therapeutic Substance into Peripheral Vein, Percutaneous Approach (ICD-10-PCS; principal; 2023-09-04)
PROC: 3E0337Z Introduction of Electrolytic and Water Balance Substance into Peripheral Vein, Percutaneous Approach (ICD-10-PCS; 2023-09-04)
DX: A09 Infectious gastroenteritis and colitis, unspecified (principal); F10.10 Alcohol abuse, uncomplicated; R42 Dizziness and giddiness; K21.00 Gastro-esophageal reflux disease with esophagitis, without bleeding; R10.13 Epigastric pain; K76.0 Fatty (change of) liver, not elsewhere classified
CPT/HCPCS: 0241U-QW; 36415; 80048; 80053; 83690; 83735; 84100; 84484; 85025; 85027; 93005; 96361; 96365; 96367; 99285-25; G0378

== ENCOUNTER 2023-11-09 11:21 | Observation (INO) | payer BC, OTHER ==
[2023-11-09] MEDS: SODIUM CHLORIDE 0.9% 500 ML INFUS.BAG IV ONE ×3 (12:10→14:13)
[2023-11-09] MEDS: LORazepam 2 MG/ML SDV VIAL IVPUSH ONE (12:20)
[2023-11-09] MEDS: ACETAMINOPHEN 1000 MG/100 ML BAG IVPB ONE (12:25)
[2023-11-09] MEDS: ONDANSETRON 4 MG/2 ML VIAL IVPUSH ONE (12:30)
[2023-11-09] MEDS ORDERED: ACETAMINOPHEN INJECTION 100 ML IVPB ONE (12:32)
[2023-11-09] MEDS ORDERED: FAMOTIDINE 20 MG/50 ML IVPB 20 MG/50 ML MG IVPB ONE (12:32)
[2023-11-09] MEDS ORDERED: ONDANSETRON 4 MG/2 ML VIAL ONE (12:32)
[2023-11-09 13:05] LABS: HEMATOCRIT 47.5 % (35.4-49); HEMOGLOBIN 16.2 G/dL (11.7-16.9); MCH 35.9 pg (25.7-33.7); MEAN CELL VOLUME 105.6 fl (80-96); MEAN PLT VOLUME 8.5 fl (7.5-11.1); PLATELET COUNT 268.8 10^3/uL (134-434); RDW 15.6 % (11.9-15.9)
[2023-11-09 13:07] LABS: ALBUMIN 4.7 g/dl (3.4-5.0); BILIRUBIN,TOTAL 1.2 mg/dl (0.2-1); CALCIUM 9.8 mg/dl (8.5-10.1); CREATININE 0.9 mg/dl (0.6-1.3); POTASSIUM 3.5 mmol/L (3.5-5.1); TOT PROT 7.3 g/dl (6.4-8.2)
[2023-11-09] MEDS: FAMOTIDINE 20 MG/50 ML IVPB 20 MG/50 ML MG IVPB ONE (13:07)
[2023-11-09 13:24] LABS: PLATELET ESTIMATE ADEQUATE
[2023-11-09] MEDS ORDERED: METOCLOPRAMIDE HCL INJECTION 10 MG/2 ML VIAL ONE (13:38)
[2023-11-09] MEDS: METOCLOPRAMIDE HCL INJECTION 10 MG/2 ML VIAL IVPB ONE (13:41)
[2023-11-09] MEDS ORDERED: TRIMETHOBENZAMIDE HCL 200MG/2ML INJ IM ONE (14:08)
[2023-11-09] MEDS: TRIMETHOBENZAMIDE HCL 200MG/2ML INJ IM ONE (14:13)
[2023-11-09] MEDS ORDERED: SUCRALFATE 1 GM/10 ML UNIT DOSE CUPS ONE (15:51)
[2023-11-09] MEDS ORDERED: MAG HYDROX/AL HYDROX/SIMETH 30 ML UNIT-DOSE CUP ONE (15:52)
[2023-11-09] MEDS: MAG HYDROX/AL HYDROX/SIMETH -MYLANTA- ORAL SUSPENSION PO ONE ×2 (15:53→22:29)
[2023-11-09] MEDS: SUCRALFATE 1 GM TABLET (FP) PO ONE (15:53)
[2023-11-09] MEDS: LACTATED RINGERS SOLUTION 1000 ML INFUS.BAG IV ONE (15:55)
[2023-11-09] MEDS ORDERED: ONDANSETRON 4 MG/2 ML VIAL IVPUSH PRN (15:56)
[2023-11-09 18:09] VITALS: BMI 27.2
[2023-11-09] MEDS: ACETAMINOPHEN 325 MG TABLET (FP) PO PRN (18:48)
[2023-11-09] MEDS: SODIUM CHLORIDE 1,000 ML IV SCH (19:55)
[2023-11-10] MEDS: MAG HYDROX/AL HYDROX/SIMETH 30 ML UNIT-DOSE CUP PO ONE (02:27)
[2023-11-10 08:40] LABS: EPITHELIAL CELLS 0-5 /hpf
[2023-11-10 08:40] LABS: ALBUMIN 3.8 g/dl (3.4-5.0); BILIRUBIN,TOTAL 1.1 mg/dl (0.2-1); CALCIUM 8.8 mg/dl (8.5-10.1); CREATININE 0.9 mg/dl (0.6-1.3); MAGNESIUM 1.6 mg/dL (1.8-2.4); PHOSPHOROUS 2.2 (2.5-4.9); POTASSIUM 3.6 mmol/L (3.5-5.1); TOT PROT 5.8 g/dl (6.4-8.2)
[2023-11-10] MEDS: PANTOPRAZOLE 40 MG TABLET PO SCH (09:32)
[2023-11-10 09:57] LABS: BASO % 0.2 % (0-2.0); EOS % 0.2 % (0-4.5); HEMATOCRIT 39.1 % (35.4-49); HEMOGLOBIN 13.4 GM/dL (11.7-16.9); LYMPH % 9.8 % (8-40); MCH 35.8 pg (25.7-33.7); MCHC 34.4 g/dl (32.0-35.9); MEAN CELL VOLUME 104.1 fl (80-96); MEAN PLT VOLUME 8.7 fl (7.5-11.1); NEUT % 83.8 % (42.8-82.8); PLATELET COUNT 225 10^3/uL (134-434); RBC 3.76 M/mm3 (4.00-5.60); RDW 16.1 % (11.9-15.9); WHITE BLOOD COUNT 10.7 K/mm3 (4.0-10.0)
[2023-11-10] MEDS: MAGNESIUM OXIDE 400 MG TABLET (FP) PO ONE (15:33)
[2023-11-10] MEDS: NAPH,MB-DB/K PH,MBDB POWDER PACKET PO SCH (15:33)
[2023-11-10] MEDS: SUCRALFATE 1 GM/10 ML UNIT DOSE CUPS PO SCH (17:37)
[2023-11-11 09:15] LABS: ALBUMIN 3.6 g/dl (3.4-5.0); BILIRUBIN,TOTAL 0.9 mg/dl (0.2-1); CALCIUM 8.6 mg/dl (8.5-10.1); CREATININE 0.8 mg/dl (0.6-1.3); POTASSIUM 3.8 mmol/L (3.5-5.1); TOT PROT 5.6 g/dl (6.4-8.2)
[2023-11-11 11:19] LABS: BASO % 0.3 % (0-2.0); EOS % 0.6 % (0-4.5); HEMATOCRIT 38.7 % (35.4-49); HEMOGLOBIN 13.2 GM/dL (11.7-16.9); LYMPH % 21.5 % (8-40); MCH 36.3 pg (25.7-33.7); MCHC 34.1 g/dl (32.0-35.9); MEAN CELL VOLUME 106.7 fl (80-96); MEAN PLT VOLUME 9.2 fl (7.5-11.1); NEUT % 69.6 % (42.8-82.8); PLATELET COUNT 204 10^3/uL (134-434); RBC 3.62 M/mm3 (4.00-5.60); RDW 16.3 % (11.9-15.9); WHITE BLOOD COUNT 6.9 K/mm3 (4.0-10.0)
[2023-11-11 12:15] LABS: ANISOCYTOSIS 1+; MACROCYTOSIS 1+
[2023-11-11] MEDS: ESCITALOPRAM OXALATE 10 MG TABLET PO SCH (16:00)
[2023-11-12 04:07] VITALS: RESP 18
[2023-11-12 10:05] VITALS: BP 141/88; PULSE 76; TEMP 98.8
== END 2023-11-12 13:31 | disposition home or self-care (01) ==
LOC: FER 11:21 → FM/S 11:52
PROVIDERS: ADMIT Internal Medicine
PROC: 3E033NZ Introduction of Analgesics, Hypnotics, Sedatives into Peripheral Vein, Percutaneous Approach (ICD-10-PCS; principal; 2023-11-09)
PROC: 3E023GC Introduction of Other Therapeutic Substance into Muscle, Percutaneous Approach (ICD-10-PCS; 2023-11-09)
PROC: 3E033GC Introduction of Other Therapeutic Substance into Peripheral Vein, Percutaneous Approach (ICD-10-PCS; 2023-11-09)
PROC: 3E0337Z Introduction of Electrolytic and Water Balance Substance into Peripheral Vein, Percutaneous Approach (ICD-10-PCS; 2023-11-09)
DX: R74.01 Elevation of levels of liver transaminase levels (principal); K29.20 Alcoholic gastritis without bleeding; F41.9 Anxiety disorder, unspecified; K27.9 Peptic ulcer, site unspecified, unspecified as acute or chronic, without hemorrhage or perforation; K21.9 Gastro-esophageal reflux disease without esophagitis; R07.9 Chest pain, unspecified; F10.20 Alcohol dependence, uncomplicated; E78.5 Hyperlipidemia, unspecified; I10 Essential (primary) hypertension
CPT/HCPCS: 36415; 71045-TC-FY; 74177-TC; 80053; 81003; 81015; 83690; 83735; 84100; 84439; 84443; 84484; 85025; 87040; 87086; 93005; 99285-25; G0378; J0131; Q9967

== ENCOUNTER 2023-11-27 15:55 | Inpatient (IN) | payer BC ==
[2023-11-27] MEDS ORDERED: ACETAMINOPHEN 325 MG TABLET (FP) ONE (16:28)
[2023-11-27] MEDS: ACETAMINOPHEN 325 MG TABLET (FP) PO ONE (16:30)
[2023-11-27] MEDS: IBUPROFEN 400 MG TABLET (FP) PO ONE (18:42)
[2023-11-27] MEDS ORDERED: IBUPROFEN 400 MG TABLET (FP) PO ONE (18:43)
[2023-11-27] MEDS: LACTATED RINGERS SOLUTION 1000 ML INFUS.BAG IV ONE (19:15)
[2023-11-27 19:31] LABS: HEMATOCRIT 52.8 % (35.4-49); MCH 36.2 pg (25.7-33.7); MCHC 34.1 g/dl (32.0-35.9); MEAN CELL VOLUME 106.1 fl (80-96); MEAN PLT VOLUME 8.4 fl (7.5-11.1); PLATELET COUNT 229.3 10^3/uL (134-434); RBC 4.98 10^6/uL (4.00-5.60); RDW 14.6 % (11.9-15.9); WHITE BLOOD COUNT 12.4 10^3/uL (4.0-10.8)
[2023-11-27 19:54] LABS: PLATELET ESTIMATE ADEQUATE
[2023-11-27 19:56] LABS: ALBUMIN 4.9 g/dl (3.4-5.0); BILIRUBIN,TOTAL 1.1 mg/dl (0.2-1); CALCIUM 10.2 mg/dl (8.5-10.1); CREATININE 1.6 mg/dl (0.6-1.3); TOT PROT 7.6 g/dl (6.4-8.2)
[2023-11-27] MEDS: SODIUM CHLORIDE 1,000 ML IV ONE ×2 (21:01→23:17)
[2023-11-27 22:54] LABS: ANION GAP 12 mmol/L (4-13); CALCIUM 8.9 mg/dl (8.5-10.1); CHLORIDE 82 mmol/L (98-107); CO2 40 mmol/L (21-32); CREATININE 1.3 mg/dl (0.6-1.3); GLUCOSE,RANDOM 103 mg/dl (74-106); SODIUM 134 mmol/L (136-145)
[2023-11-27 22:56] LABS: POTASSIUM 2.7 mmol/L (3.5-5.1)
[2023-11-27] MEDS ORDERED: POTASSIUM CHLORIDE ORAL LIQUID 20 MEQ/15 ML ONE (22:58)
[2023-11-27] MEDS: POTASSIUM CHLORIDE ORAL LIQUID 20 MEQ/15 ML PO ONE (23:01)
[2023-11-27] MEDS ORDERED: KCL 10 MEQ IVPB 10 MEQ/100 ML INFUS.BAG IVPB ONE (23:04)
[2023-11-27] MEDS: KCL 10 MEQ IVPB 10 MEQ/100 ML INFUS.BAG IVPB SCH (23:11)
[2023-11-27 23:29] LABS: VENOUS O2 SATURATION 78.1 % (70-80); VENOUS PCO2 56.4 mmHg (38-52); VENOUS PH 7.504 (7.310-7.410)
[2023-11-27 23:45] LABS: VENOUS BASE EXCESS 16.6 mmol/L (-2-2)
[2023-11-28 02:15] VITALS: BMI 26.4
[2023-11-28] MEDS ORDERED: BENZOCAINE/MENTHOL (CHLORASEPTIC ) LOZENGE MM PRN (03:52)
[2023-11-28] MEDS: PHENOL 177 ML SPRAY BOTTLE MM PRN (04:19)
[2023-11-28] MEDS: guaiFENesin/D-METHORPHAN HB 10 ML UNIT-DOSE CUPS PO PRN (05:07)
[2023-11-28] MEDS: TRIMETHOBENZAMIDE HCL 200MG/2ML INJ IM PRN (05:24)
[2023-11-28 08:33] LABS: INR 0.97 (0.83-1.09); PROTHROMBIN TIME (PATIENT) 11.3 SEC (9.7-13.0)
[2023-11-28 08:36] LABS: ACTIVATED PTT 23.4 SECONDS (25.2-36.5)
[2023-11-28 08:39] LABS: HEMATOCRIT 43.3 % (35.4-49); HEMOGLOBIN 14.3 G/dL (11.7-16.9); MCH 35.4 pg (25.7-33.7); MEAN CELL VOLUME 107.1 fl (80-96); MEAN PLT VOLUME 8.8 fl (7.5-11.1); RBC 4.04 10^6/uL (4.00-5.60); RDW 14.7 % (11.9-15.9); WHITE BLOOD COUNT 9.3 10^3/uL (4.0-10.8)
[2023-11-28 09:13] LABS: ALBUMIN 3.7 g/dl (3.4-5.0); BILIRUBIN,TOTAL 1.1 mg/dl (0.2-1); CALCIUM 8.7 mg/dl (8.5-10.1); CREATININE 0.9 mg/dl (0.6-1.3); POTASSIUM 3.2 mmol/L (3.5-5.1); TOT PROT 5.6 g/dl (6.4-8.2)
[2023-11-28 09:48] LABS: VENOUS BASE EXCESS 9.2 mmol/L (-2-2); VENOUS O2 SATURATION 72.1 % (70-80); VENOUS PH 7.31 (7.310-7.410)
[2023-11-28 09:50] LABS: VENOUS PCO2 81.3 mmHg (38-52)
[2023-11-28] MEDS: ESCITALOPRAM OXALATE 10 MG TABLET PO SCH (09:56)
[2023-11-28] MEDS: PANTOPRAZOLE 40 MG TABLET PO SCH (09:56)
[2023-11-28] MEDS: THIAMINE HCL 100 MG TABLET (FP) PO SCH (09:57)
[2023-11-28] MEDS: FOLIC ACID 1 MG TABLET (FP) PO SCH (09:57)
[2023-11-28] MEDS: KCL 10 MEQ IVPB 10 MEQ/100 ML INFUS.BAG IVPB SCH (09:58)
[2023-11-28] MEDS ORDERED: HEPARIN NA (PORCINE) 5,000 UNITS/ML 1ML VIAL SQ SCH (14:00)
[2023-11-28 23:18] LABS: METHADONE, UR NEGATIVE (NEGATIVE); PHENCYCLIDINE,URINE NEGATIVE (NEGATIVE); URINE BENZODIAZEPINES NEGATIVE (NEGATIVE)
[2023-11-28 23:19] LABS: COCAINE, UR NEGATIVE (NEGATIVE); OPIATES, URI NEGATIVE (NEGATIVE); URINE BARBITURATES NEGATIVE (NEGATIVE)
[2023-11-28 23:41] LABS: URINE AMPHETAMINES NEGATIVE (NEGATIVE)
[2023-11-29 07:50] LABS: HEMATOCRIT 42.5 % (35.4-49); HEMOGLOBIN 14.2 G/dL (11.7-16.9); MCH 35.4 pg (25.7-33.7); MCHC 33.3 g/dl (32.0-35.9); MEAN CELL VOLUME 106.3 fl (80-96); MEAN PLT VOLUME 8.6 fl (7.5-11.1); PLATELET COUNT 187.1 10^3/uL (134-434); RDW 14.4 % (11.9-15.9); WHITE BLOOD COUNT 8.4 10^3/uL (4.0-10.8)
[2023-11-29 08:20] LABS: ALBUMIN 3.6 g/dl (3.4-5.0); BILIRUBIN,TOTAL 0.9 mg/dl (0.2-1); CALCIUM 8.7 mg/dl (8.5-10.1); CREATININE 0.8 mg/dl (0.6-1.3); PHOSPHOROUS 2.9 (2.5-4.9); TOT PROT 5.4 g/dl (6.4-8.2)
[2023-11-29] MEDS: POTASSIUM CHLORIDE ORAL LIQUID 20 MEQ/15 ML PO ONE (09:12)
[2023-11-29] MEDS: SODIUM CHLORIDE 1,000 ML IV SCH (09:12)
[2023-11-29] MEDS: ENOXAPARIN NA (PORCINE) 40 MG/0.4 ML DISP.SYRIN SQ SCH (09:15)
[2023-11-29 09:40] VITALS: BP 135/80; PULSE 94; RESP 16; TEMP 97.4
== END 2023-11-29 13:00 | disposition home or self-care (01) | DRG 641 ==
LOC: FER 15:55 → FM/S 11-28 00:29
PROVIDERS: ADMIT Internal Medicine; ATTEND Internal Medicine
DX: E87.1 Hypo-osmolality and hyponatremia (principal); E87.6 Hypokalemia; E87.3 Alkalosis; E86.0 Dehydration; R00.0 Tachycardia, unspecified; R11.2 Nausea with vomiting, unspecified; R74.01 Elevation of levels of liver transaminase levels; K21.9 Gastro-esophageal reflux disease without esophagitis; K76.0 Fatty (change of) liver, not elsewhere classified; R07.9 Chest pain, unspecified
CPT/HCPCS: 0241U-QW; 36415; 71045-TC-FY; 80048; 80053; 80307; 82010; 82803; 83605; 83735; 84100; 84484; 85027; 85379; 85610; 85730; 87651; 93005; 99285-25

== ENCOUNTER 2023-12-19 10:25 | Observation (INO) | payer BC ==
[2023-12-19] MEDS ORDERED: FAMOTIDINE 20 MG/50 ML IVPB 20 MG/50 ML MG IVPB ONE (11:09)
[2023-12-19] MEDS ORDERED: METOCLOPRAMIDE HCL INJECTION 10 MG/2 ML VIAL ONE (11:09)
[2023-12-19] MEDS: FAMOTIDINE 20 MG/50 ML IVPB 20 MG/50 ML MG IVPB ONE (11:15)
[2023-12-19] MEDS: LACTATED RINGERS SOLUTION 1000 ML INFUS.BAG IV ONE (11:15)
[2023-12-19 11:26] LABS: HEMATOCRIT 53.5 % (35.4-49); HEMOGLOBIN 17.8 G/dL (11.7-16.9); MCH 35.5 pg (25.7-33.7); MCHC 33.3 g/dl (32.0-35.9); MEAN CELL VOLUME 106.3 fl (80-96); MEAN PLT VOLUME 8.6 fl (7.5-11.1); PLATELET COUNT 223.4 10^3/uL (134-434); RBC 5.03 10^6/uL (4.00-5.60); RDW 15.3 % (11.9-15.9); WHITE BLOOD COUNT 16.7 10^3/uL (4.0-10.8)
[2023-12-19] MEDS: METOCLOPRAMIDE HCL INJECTION 10 MG/2 ML VIAL IVPUSH ONE (11:27)
[2023-12-19 11:40] LABS: ALBUMIN 4.9 g/dl (3.4-5.0); BILIRUBIN,TOTAL 0.9 mg/dl (0.2-1); CALCIUM 10.1 mg/dl (8.5-10.1); CREATININE 1.1 mg/dl (0.6-1.3); MAGNESIUM 2.1 mg/dL (1.8-2.4); TOT PROT 7.8 g/dl (6.4-8.2)
[2023-12-19 11:42] LABS: POTASSIUM 2.9 mmol/L (3.5-5.1)
[2023-12-19 11:55] LABS: ANISOCYTOSIS 1+; PLATELET ESTIMATE ADEQUATE
[2023-12-19] MEDS ORDERED: ACETAMINOPHEN INJECTION 100 ML IVPB ONE (12:14)
[2023-12-19] MEDS ORDERED: POTASSIUM CHLORIDE ORAL LIQUID 20 MEQ/15 ML ONE (12:14)
[2023-12-19] MEDS: ACETAMINOPHEN 1000 MG/100 ML BAG IVPB ONE (12:18)
[2023-12-19 12:29] LABS: EPITHELIAL CELLS 0-5 /hpf
[2023-12-19 12:30] LABS: URINE MUCUS FEW
[2023-12-19] MEDS: SODIUM CHLORIDE 0.9% 500 ML INFUS.BAG IV ONE (12:30)
[2023-12-19] MEDS ORDERED: KCL 10 MEQ IVPB 10 MEQ/100 ML INFUS.BAG IVPB ONE (12:42)
[2023-12-19] MEDS: KCL 10 MEQ IVPB 10 MEQ/100 ML INFUS.BAG IVPB SCH (13:21)
[2023-12-19] MEDS: POTASSIUM CHLORIDE ORAL LIQUID 20 MEQ/15 ML PO ONE (13:21)
[2023-12-19] MEDS ORDERED: LIDOCAINE VISCOUS 2% ORAL/TOP 100 ML BOTTLE ONE (14:24)
[2023-12-19] MEDS: LIDOCAINE VISCOUS 2% ORAL/TOP 15 ML UNIT-DOSE CUP MM ONE (14:40)
[2023-12-19 17:16] VITALS: BMI 26.7
[2023-12-19] MEDS ORDERED: ACETAMINOPHEN 1000 MG/100 ML BAG IVPB PRN (20:21)
[2023-12-20] MEDS ORDERED: LORazepam 2 MG/ML SDV VIAL IVPUSH PRN (09:52)
[2023-12-20] MEDS: POTASSIUM CHLORIDE TABS 10 MEQ TABLET.ER (FP) PO ONE (10:45)
[2023-12-20] MEDS: PANTOPRAZOLE 40 MG TABLET PO SCH (10:46)
[2023-12-20] MEDS: LACTATED RINGERS SOLUTION 1,000 ML/1,000 ML INFUS.BAG IV SCH (10:55)
[2023-12-20] MEDS ORDERED: METOCLOPRAMIDE HCL INJECTION 10 MG/2 ML VIAL IVPUSH PRN (12:59)
[2023-12-21 11:54] VITALS: BP 119/68; PULSE 91; RESP 19; TEMP 98.5
[2023-12-21 11:56] LABS: ALBUMIN 3.7 g/dl (3.4-5.0); BILIRUBIN,TOTAL 0.9 mg/dl (0.2-1); CALCIUM 8.8 mg/dl (8.5-10.1); CREATININE 1.1 mg/dl (0.6-1.3); POTASSIUM 3.5 mmol/L (3.5-5.1); TOT PROT 5.8 g/dl (6.4-8.2)
== END 2023-12-21 13:20 | disposition home or self-care (01) ==
LOC: FER 10:25 → FM/S 13:00
PROC: 3E033NZ Introduction of Analgesics, Hypnotics, Sedatives into Peripheral Vein, Percutaneous Approach (ICD-10-PCS; principal; 2023-12-19)
PROC: 3E033GC Introduction of Other Therapeutic Substance into Peripheral Vein, Percutaneous Approach (ICD-10-PCS; 2023-12-19)
PROC: 3E033NZ Introduction of Analgesics, Hypnotics, Sedatives into Peripheral Vein, Percutaneous Approach (ICD-10-PCS; 2023-12-19)
DX: F10.139 Alcohol abuse with withdrawal, unspecified (principal); E87.6 Hypokalemia; K27.9 Peptic ulcer, site unspecified, unspecified as acute or chronic, without hemorrhage or perforation; K21.9 Gastro-esophageal reflux disease without esophagitis; A09 Infectious gastroenteritis and colitis, unspecified; K76.0 Fatty (change of) liver, not elsewhere classified; K70.10 Alcoholic hepatitis without ascites; E87.3 Alkalosis; E78.5 Hyperlipidemia, unspecified; I10 Essential (primary) hypertension; F39 Unspecified mood [affective] disorder; G62.1 Alcoholic polyneuropathy
CPT/HCPCS: 0241U-QW; 36415; 70450-TC; 80053; 81003; 81015; 83690; 83735; 85025; 87086; 93005; 99285-25; G0378; J0131

== ENCOUNTER 2024-01-15 23:25 | Inpatient (IN) | payer BC ==
[2024-01-16] MEDS ORDERED: ONDANSETRON 4 MG/2 ML VIAL ONE (00:05)
[2024-01-16] MEDS: SODIUM CHLORIDE 1,000 ML IV STA (00:09)
[2024-01-16] MEDS: ONDANSETRON 4 MG/2 ML VIAL IVPUSH ONE (00:10)
[2024-01-16 00:46] LABS: BASO % 0.3 % (0-2.0); EOS % 0.2 % (0-4.5); HEMOGLOBIN 15.7 GM/dL (11.7-16.9); LYMPH % 17.7 % (8-40); MCH 36.3 pg (25.7-33.7); MCHC 34.8 g/dl (32.0-35.9); MEAN CELL VOLUME 104.3 fl (80-96); MEAN PLT VOLUME 7.9 fl (7.5-11.1); MONO % 6.7 % (3.8-10.2); NEUT % 75.1 % (42.8-82.8); PLATELET COUNT 254 10^3/uL (134-434); RBC 4.32 M/mm3 (4.00-5.60); RDW 16.6 % (11.9-15.9); WHITE BLOOD COUNT 8.7 K/mm3 (4.0-10.0)
[2024-01-16 00:49] LABS: INR 1.01 (0.83-1.09); PROTHROMBIN TIME (PATIENT) 11.4 SEC (9.7-13.0)
[2024-01-16 00:59] LABS: POTASSIUM 3.8 mmol/L (3.5-5.1)
[2024-01-16 01:01] LABS: CALCIUM 9.2 mg/dL (8.5-10.1)
[2024-01-16 01:02] LABS: ALBUMIN 3.9 g/dl (3.4-5.0); BLOOD UREA NITROGEN 10.5 mg/dL (7-18)
[2024-01-16 01:05] LABS: CREATININE 0.8 mg/dL (0.55-1.3)
[2024-01-16 01:06] LABS: BILIRUBIN,TOTAL 0.6 mg/dL (0.2-1); TOT PROT 7.7 g/dl (6.4-8.2)
[2024-01-16] MEDS ORDERED: METOCLOPRAMIDE HCL INJECTION 10 MG/2 ML VIAL ONE (01:17)
[2024-01-16] MEDS: METOCLOPRAMIDE HCL INJECTION 10 MG/2 ML VIAL IVPB ONE (01:21)
[2024-01-16] MEDS: ONDANSETRON 4 MG/2 ML VIAL IVPUSH PRN (05:32)
[2024-01-16] MEDS: DEXTROSE 5%-0.45% SALINE 1,000 ML IV SCH (05:33)
[2024-01-16 06:22] VITALS: BMI 21.2
[2024-01-16 06:30] VITALS: RESP 18
[2024-01-16] MEDS: LORazepam 2 MG/ML SDV VIAL IVPUSH PRN (07:11)
[2024-01-16 09:14] LABS: ANION GAP 13 mmol/L (4-13); CALCIUM 8.8 mg/dl (8.5-10.1); CHLORIDE 95 mmol/L (98-107); CO2 32 mmol/L (21-32); CREATININE 0.8 mg/dl (0.6-1.3); GLUCOSE,RANDOM 99 mg/dl (74-106); POTASSIUM 3.5 mmol/L (3.5-5.1); SODIUM 140 mmol/L (136-145)
[2024-01-16 09:21] LABS: BASO % 0.2 % (0-2.0); EOS % 0.2 % (0-4.5); HEMATOCRIT 41.5 % (35.4-49); HEMOGLOBIN 13.8 GM/dL (11.7-16.9); LYMPH % 17.4 % (8-40); MCH 35.5 pg (25.7-33.7); MCHC 33.3 g/dl (32.0-35.9); MEAN CELL VOLUME 106.6 fl (80-96); MEAN PLT VOLUME 7.8 fl (7.5-11.1); MONO % 8.2 % (3.8-10.2); PLATELET COUNT 225 10^3/uL (134-434); RDW 16.6 % (11.9-15.9); WHITE BLOOD COUNT 10.2 K/mm3 (4.0-10.0)
[2024-01-16 10:09] LABS: ANISOCYTOSIS 2+; MACROCYTOSIS 2+
[2024-01-16] MEDS ORDERED: LORazepam 0.5 MG TABLET PO PRN ×2 (10:21)
[2024-01-16] MEDS ORDERED: LORazepam 1 MG TABLET PO PRN ×5 (10:21→12:05)
[2024-01-16 10:36] LABS: ALBUMIN 4.1 g/dl (3.4-5.0); BILIRUBIN,DIRECT 0.2 mg/dL (0.0-0.2); BILIRUBIN,TOTAL 0.7 mg/dl (0.2-1); TOT PROT 6.2 g/dl (6.4-8.2)
[2024-01-16 11:25] VITALS: BP 116/74; PULSE 101; TEMP 98.6
[2024-01-16] MEDS ORDERED: LORazepam 1 MG TABLET PO SCH (12:15)
[2024-01-16] MEDS ORDERED: LORazepam 2 MG TABLET PO SCH ×2 (12:15)
[2024-01-16] MEDS: MULTIVITAMINS (DAILY MVI) TABLET (FP) PO SCH (15:35)
[2024-01-16] MEDS: THIAMINE 100 MG TABLET PO SCH (15:35)
[2024-01-16] MEDS: PANTOPRAZOLE 40 MG TABLET PO SCH (15:35)
[2024-01-16] MEDS: CYANOCOBALAMIN 1,000 MCG TABLET (FP) PO SCH (15:36)
[2024-01-16] MEDS: FOLIC ACID 1 MG TABLET (FP) PO SCH (15:36)
[2024-01-16] MEDS: LORazepam 1 MG TABLET PO PRN (15:36)
[2024-01-16] MEDS: LORazepam 1 MG TABLET PO SCH (15:39)
[2024-01-18] MEDS ORDERED: LORazepam 0.5 MG TABLET PO PRN ×4
[2024-01-18] MEDS ORDERED: LORazepam 1 MG TABLET PO SCH ×3 (05:00)
[2024-01-19] MEDS ORDERED: LORazepam 0.5 MG TABLET PO SCH ×3 (05:00)
== END 2024-01-16 16:21 | disposition other institution (70) | DRG 897 ==
LOC: FER 23:25 → FM/S 01-16 02:13 → OBSVTOIN 01-16 10:20
PROVIDERS: ADMIT Internal Medicine
DX: F10.239 Alcohol dependence with withdrawal, unspecified (principal); K21.9 Gastro-esophageal reflux disease without esophagitis; K70.0 Alcoholic fatty liver; K70.10 Alcoholic hepatitis without ascites
CPT/HCPCS: 36415; 71045-TC-FY; 80048; 80053; 80076; 80307; 83690; 85025; 85610; 93005; 99285-25; G0378

== ENCOUNTER 2024-01-16 17:05 | Inpatient (IN) | payer BC ==
[2024-01-16 19:15] VITALS: BMI 26.8
[2024-01-16] MEDS ORDERED: diazePAM 5 MG TABLET PO PRN (19:28)
[2024-01-16] MEDS ORDERED: IBUPROFEN 400 MG TABLET (FP) PO PRN (19:42)
[2024-01-16] MEDS ORDERED: MAGNESIUM HYDROX 2400MG/30ML ORAL SUSPENSION 30 ML CUP PO PRN (19:42)
[2024-01-16] MEDS ORDERED: DICYCLOMINE HCL 10 MG CAPSULE PO PRN (19:42)
[2024-01-16] MEDS ORDERED: guaiFENesin 600 MG TABLET.ER (FP) PO PRN (19:42)
[2024-01-16] MEDS ORDERED: ONDANSETRON *ODT* 4 MG TABLET SL PRN (19:42)
[2024-01-16] MEDS ORDERED: BISMUTH SUBSALICYLATE 524 MG/30 ML PO PRN (19:42)
[2024-01-16] MEDS ORDERED: BENZONATATE 200 MG CAPSULE PO PRN (19:42)
[2024-01-16] MEDS ORDERED: POLYETHYLENE GLYCOL (HEALTHYLAX) 3350 17 GM PACKET PO PRN (19:42)
[2024-01-16] MEDS ORDERED: NICOTINE POLACRILEX 2 MG GUM BUC PRN (19:42)
[2024-01-16] MEDS ORDERED: LOPERAMIDE HCL 2 MG CAPSULE PO PRN (19:42)
[2024-01-16] MEDS ORDERED: NICOTINE POLACRILEX 2 MG LOZENGE BC PRN (19:42)
[2024-01-16] MEDS ORDERED: ACETAMINOPHEN 325 MG TABLET (FP) PO PRN (19:42)
[2024-01-16] MEDS ORDERED: BENZOCAINE/MENTHOL (CHLORASEPTIC ) LOZENGE MM PRN (19:42)
[2024-01-16] MEDS ORDERED: IBUPROFEN 600 MG TABLET (FP) PO PRN (19:42)
[2024-01-16] MEDS ORDERED: METOPROLOL TARTRATE 25 MG TABLET (FP) ONE (20:14)
[2024-01-16] MEDS: METOPROLOL TARTRATE 25 MG TABLET (FP) PO ONE (20:17)
[2024-01-16] MEDS: hydrOXYzine PAMOATE 25 MG CAPSULE (FP) PO PRN (22:15)
[2024-01-16] MEDS: METHOCARBAMOL 500 MG TABLET PO PRN (22:15)
[2024-01-16] MEDS: diazePAM 5 MG TABLET PO SCH (22:16)
[2024-01-16] MEDS: MELATONIN 5 MG TABLETS PO SCH (22:16)
[2024-01-16] MEDS: THIAMINE 100 MG TABLET PO SCH (22:16)
[2024-01-17] MEDS: diazePAM 5 MG TABLET PO SCH (05:18)
[2024-01-17] MEDS ORDERED: PATIENT'S OWN MEDICATION (NON-FORMULARY) (Omeprazole [Omeprazole] 20 MG Tablet.Dr) PO SCH (10:00)
[2024-01-17] MEDS: PANTOPRAZOLE 20 MG TABLET PO SCH (10:33)
[2024-01-17] MEDS: PRENATAL VITAMINS W/ FOLIC ACID TABLET (FP) PO SCH (10:33)
[2024-01-17] MEDS: MAG HYDROX/AL HYDROX/SIMETH 30 ML UNIT-DOSE CUP PO PRN (22:15)
[2024-01-18] MEDS: diazePAM 5 MG TABLET PO ONE (05:37)
[2024-01-18 09:15] VITALS: BP 128/75; PULSE 95; RESP 18; TEMP 98.6
== END 2024-01-18 09:25 | disposition home or self-care (01) | DRG 897 ==
LOC: YASAS 17:05 → Y6N 20:20
PROVIDERS: ADMIT Allergy & Immunology; ATTEND Surgery
PROC: HZ2ZZZZ Detoxification Services for Substance Abuse Treatment (ICD-10-PCS; principal; 2024-01-16)
DX: F10.230 Alcohol dependence with withdrawal, uncomplicated (principal); F17.200 Nicotine dependence, unspecified, uncomplicated; K21.9 Gastro-esophageal reflux disease without esophagitis
CPT/HCPCS: 36415; 71045-TC-FY; 80048; 80053; 80076; 80305; 80307; 83690; 85025; 85610; 93005; 99285-25; G0378

== ENCOUNTER 2024-02-03 08:08 | Observation (INO) | payer BC ==
[2024-02-03] MEDS: SODIUM CHLORIDE 1,000 ML IV ONE (08:20)
[2024-02-03] MEDS: ONDANSETRON 4 MG/2 ML VIAL IVPUSH ONE ×2 (08:25→15:45)
[2024-02-03] MEDS ORDERED: ONDANSETRON 4 MG/2 ML VIAL ONE (08:32)
[2024-02-03] MEDS ORDERED: FAMOTIDINE 20 MG/50 ML IVPB 20 MG/50 ML MG IVPB ONE (08:32)
[2024-02-03] MEDS ORDERED: MAG HYDROX/AL HYDROX/SIMETH 30 ML UNIT-DOSE CUP ONE (08:32)
[2024-02-03] MEDS: FAMOTIDINE 20 MG/50 ML IVPB 20 MG in PREMIX 50 IVPB ONE (08:35)
[2024-02-03] MEDS: MAG HYDROX/AL HYDROX/SIMETH -MYLANTA- ORAL SUSPENSION PO ONE (08:37)
[2024-02-03 09:04] LABS: HEMATOCRIT 52.1 % (35.4-49); HEMOGLOBIN 17.2 G/dL (11.7-16.9); MCH 35.4 pg (25.7-33.7); MCHC 33.1 g/dl (32.0-35.9); MEAN CELL VOLUME 106.9 fl (80-96); MEAN PLT VOLUME 8.5 fl (7.5-11.1); PLATELET COUNT 234.4 10^3/uL (134-434); RBC 4.87 10^6/uL (4.00-5.60); RDW 14.9 % (11.9-15.9); WHITE BLOOD COUNT 13.6 10^3/uL (4.0-10.8)
[2024-02-03 09:06] LABS: ALBUMIN 5.2 g/dl (3.4-5.0); ALK PHOS 66 U/L (45-117); ANION GAP 21 mmol/L (4-13); BILIRUBIN,TOTAL 1.4 mg/dl (0.2-1); CALCIUM 10.2 mg/dl (8.5-10.1); CHLORIDE 87 mmol/L (98-107); CO2 28 mmol/L (21-32); CREATININE 1.2 mg/dl (0.6-1.3); GLUCOSE,RANDOM 114 mg/dl (74-106); MAGNESIUM 2.1 mg/dL (1.8-2.4); POTASSIUM 3.8 mmol/L (3.5-5.1); SGOT/AST 40 U/L (15-37); SGPT/ALT 26 U/L (7-52); SODIUM 136 mmol/L (136-145); TOT PROT 7.8 g/dl (6.4-8.2)
[2024-02-03 09:37] LABS: PLATELET ESTIMATE ADEQUATE
[2024-02-03] MEDS ORDERED: METOCLOPRAMIDE HCL INJECTION 10 MG/2 ML VIAL ONE (09:37)
[2024-02-03] MEDS: METOCLOPRAMIDE HCL INJECTION 10 MG/2 ML VIAL IVPUSH ONE (09:44)
[2024-02-03] MEDS ORDERED: LACTATED RINGERS SOLUTION 1,000 ML/1,000 ML INFUS.BAG IV SCH ×2 (10:30)
[2024-02-03] MEDS: DEXTROSE 5%-NORMAL SALINE 1,000 ML IV SCH (11:41)
[2024-02-03 12:11] LABS: VENOUS BASE EXCESS 4.6 mmol/L (-2-2); VENOUS PCO2 40.4 mmHg (38-52); VENOUS PH 7.468 (7.310-7.410)
[2024-02-03 14:26] LABS: CALCIUM 8.9 mg/dl (8.5-10.1); CREATININE 0.9 mg/dl (0.6-1.3); POTASSIUM 3.1 mmol/L (3.5-5.1)
[2024-02-03] MEDS ORDERED: SODIUM CHLORIDE 1,000 ML IV ONE (14:59)
[2024-02-03] MEDS: POTASSIUM CHLORIDE ORAL LIQUID 20 MEQ/15 ML PO ONE (15:14)
[2024-02-03 18:27] VITALS: BMI 26.9
[2024-02-03] MEDS ORDERED: TRIMETHOBENZAMIDE HCL 200MG/2ML INJ IM PRN (20:35)
[2024-02-04 09:52] LABS: CALCIUM 8.9 mg/dl (8.5-10.1); CREATININE 0.8 mg/dl (0.6-1.3); POTASSIUM 3.1 mmol/L (3.5-5.1)
[2024-02-04 10:45] LABS: BASO % 0.4 % (0-2.0); EOS % 0.5 % (0-4.5); HEMATOCRIT 39.6 % (35.4-49); HEMOGLOBIN 13.7 GM/dL (11.7-16.9); LYMPH % 19.6 % (8-40); MCH 36.5 pg (25.7-33.7); MCHC 34.7 g/dl (32.0-35.9); MEAN CELL VOLUME 105.3 fl (80-96); MEAN PLT VOLUME 8.8 fl (7.5-11.1); MONO % 5.8 % (3.8-10.2); NEUT % 73.7 % (42.8-82.8); PLATELET COUNT 187 10^3/uL (134-434); RBC 3.76 M/mm3 (4.00-5.60); RDW 16.2 % (11.9-15.9); WHITE BLOOD COUNT 9.7 K/mm3 (4.0-10.0)
[2024-02-04 11:32] LABS: ANISOCYTOSIS 0; MACROCYTOSIS 2+
[2024-02-04] MEDS: SODIUM CHLORIDE 0.9%/KCL 20 MEQ/1,000 ML INFUS.BAG IV SCH (11:47)
[2024-02-04] MEDS: POTASSIUM CHLORIDE ORAL LIQUID 20 MEQ/15 ML PO ONE (11:48)
[2024-02-04] MEDS: LACTATED RINGERS SOLUTION 1,000 ML/1,000 ML INFUS.BAG IV SCH (11:48)
[2024-02-04] MEDS: MULTIVITAMINS (DAILY MVI) TABLET (FP) PO SCH (11:49)
[2024-02-04] MEDS: THIAMINE 100 MG TABLET PO SCH (11:49)
[2024-02-04] MEDS: PANTOPRAZOLE 40 MG TABLET PO SCH (11:49)
[2024-02-04] MEDS: FOLIC ACID 1 MG TABLET (FP) PO SCH (11:49)
[2024-02-04] MEDS: METOCLOPRAMIDE HCL INJECTION 10 MG/2 ML VIAL IVPUSH PRN (14:27)
[2024-02-05 09:37] LABS: ALBUMIN 3.7 g/dl (3.4-5.0); ALK PHOS 52 U/L (45-117); ANION GAP 10 mmol/L (4-13); BILIRUBIN,TOTAL 0.8 mg/dl (0.2-1); CALCIUM 9.1 mg/dl (8.5-10.1); CHLORIDE 101 mmol/L (98-107); CO2 27 mmol/L (21-32); CREATININE 0.8 mg/dl (0.6-1.3); GLUCOSE,RANDOM 116 mg/dl (74-106); POTASSIUM 3.6 mmol/L (3.5-5.1); SGOT/AST 263 U/L (15-37); SGPT/ALT 116 U/L (7-52); SODIUM 138 mmol/L (136-145); TOT PROT 5.8 g/dl (6.4-8.2)
[2024-02-05 10:17] VITALS: BP 125/76; PULSE 89; RESP 18; TEMP 98.2
[2024-02-05 10:35] LABS: BASO % 0.4 % (0-2.0); EOS % 0.5 % (0-4.5); HEMATOCRIT 38.4 % (35.4-49); HEMOGLOBIN 13.1 GM/dL (11.7-16.9); LYMPH % 31.1 % (8-40); MCH 36.3 pg (25.7-33.7); MCHC 34.2 g/dl (32.0-35.9); MEAN CELL VOLUME 106.2 fl (80-96); MEAN PLT VOLUME 8.8 fl (7.5-11.1); MONO % 7.2 % (3.8-10.2); NEUT % 60.8 % (42.8-82.8); PLATELET COUNT 181 10^3/uL (134-434); RBC 3.61 M/mm3 (4.00-5.60); WHITE BLOOD COUNT 5.6 K/mm3 (4.0-10.0)
== END 2024-02-05 14:08 | disposition home or self-care (01) ==
LOC: FER 08:08 → FM/S 16:31
PROVIDERS: ADMIT Internal Medicine
PROC: 3E033GC Introduction of Other Therapeutic Substance into Peripheral Vein, Percutaneous Approach (ICD-10-PCS; principal; 2024-02-03)
PROC: 3E033GC Introduction of Other Therapeutic Substance into Peripheral Vein, Percutaneous Approach (ICD-10-PCS; 2024-02-03)
PROC: 3E0337Z Introduction of Electrolytic and Water Balance Substance into Peripheral Vein, Percutaneous Approach (ICD-10-PCS; 2024-02-03)
PROC: 3E033GC Introduction of Other Therapeutic Substance into Peripheral Vein, Percutaneous Approach (ICD-10-PCS; 2024-02-03)
DX: K29.20 Alcoholic gastritis without bleeding (principal); F10.99 Alcohol use, unspecified with unspecified alcohol-induced disorder; K21.00 Gastro-esophageal reflux disease with esophagitis, without bleeding; K76.0 Fatty (change of) liver, not elsewhere classified; K70.10 Alcoholic hepatitis without ascites; A09 Infectious gastroenteritis and colitis, unspecified; R79.89 Other specified abnormal findings of blood chemistry; K63.5 Polyp of colon
CPT/HCPCS: 36415; 71045-TC-FY; 80048; 80053; 81003; 81015; 82570; 82803; 83690; 83735; 84155; 84156; 84165; 84484; 85025; 85027; 93005; 99285-25; G0378

== ENCOUNTER 2024-02-24 16:09 | Inpatient (IN) | payer BC ==
[2024-02-24] MEDS ORDERED: diazePAM CARPU-JECT 10 MG/2 ML DISP.SYRIN IVPUSH ONE (17:11)
[2024-02-24] MEDS ORDERED: ONDANSETRON 4 MG/2 ML VIAL ONE (17:35)
[2024-02-24] MEDS ORDERED: diazePAM CARPU-JECT 10 MG/2 ML DISP.SYRIN ONE (17:36)
[2024-02-24] MEDS: ONDANSETRON 4 MG/2 ML VIAL IVPUSH ONE (17:42)
[2024-02-24] MEDS: SODIUM CHLORIDE 1,000 ML IV STA (17:43)
[2024-02-24] MEDS: diazePAM CARPU-JECT 10 MG/2 ML DISP.SYRIN IVPUSH ONE (17:43)
[2024-02-24 17:59] LABS: HEMATOCRIT 56.1 % (35.4-49); HEMOGLOBIN 18.8 G/dL (11.7-16.9); MCH 35.9 pg (25.7-33.7); MCHC 33.5 g/dl (32.0-35.9); MEAN CELL VOLUME 107.1 fl (80-96); MEAN PLT VOLUME 8.3 fl (7.5-11.1); PLATELET COUNT 234.9 10^3/uL (134-434); RBC 5.24 10^6/uL (4.00-5.60); RDW 14.4 % (11.9-15.9); WHITE BLOOD COUNT 13.7 10^3/uL (4.0-10.8)
[2024-02-24] MEDS ORDERED: ACETAMINOPHEN INJECTION 100 ML IVPB ONE (17:59)
[2024-02-24] MEDS: ACETAMINOPHEN 1000 MG/100 ML BAG IVPB ONE (18:01)
[2024-02-24] MEDS ORDERED: MAG HYDROX/AL HYDROX/SIMETH 30 ML UNIT-DOSE CUP ONE (18:02)
[2024-02-24] MEDS ORDERED: FAMOTIDINE 20 MG/50 ML IVPB 20 MG/50 ML MG IVPB ONE (18:02)
[2024-02-24 18:15] LABS: ALBUMIN 5.4 g/dl (3.4-5.0); ALK PHOS 78 U/L (45-117); ANION GAP 27 mmol/L (4-13); BILIRUBIN,TOTAL 0.9 mg/dl (0.2-1); CALCIUM 10.4 mg/dl (8.5-10.1); CHLORIDE 79 mmol/L (98-107); CO2 35 mmol/L (21-32); CREATININE 2.6 mg/dl (0.6-1.3); GLUCOSE,RANDOM 127 mg/dl (74-106); MAGNESIUM 1.7 mg/dL (1.8-2.4); SGOT/AST 27 U/L (15-37); SGPT/ALT 16 U/L (7-52); SODIUM 141 mmol/L (136-145); TOT PROT 8.8 g/dl (6.4-8.2)
[2024-02-24] MEDS: FAMOTIDINE 20 MG/50 ML IVPB 20 MG/50 ML MG IVPB ONE (18:22)
[2024-02-24] MEDS: MAG HYDROX/AL HYDROX/SIMETH 30 ML UNIT-DOSE CUP PO ONE (18:22)
[2024-02-24 18:24] LABS: POTASSIUM 2.9 mmol/L (3.5-5.1)
[2024-02-24] MEDS ORDERED: KCL 10 MEQ IVPB 10 MEQ/100 ML INFUS.BAG IVPB ONE ×2 (18:27→19:19)
[2024-02-24] MEDS: KCL 10 MEQ IVPB 10 MEQ/100 ML INFUS.BAG IVPB SCH (18:32)
[2024-02-24 18:33] LABS: PLATELET ESTIMATE ADEQUATE
[2024-02-24] MEDS ORDERED: MAGNESIUM SULFATE IN WATER 2 GM/50 ML IVPB IVPB ONE (19:33)
[2024-02-24] MEDS: MAGNESIUM SULFATE IN WATER 2 GM/50 ML IVPB IVPB ONE (20:30)
[2024-02-24 21:35] VITALS: BMI 25.0
[2024-02-25 02:34] LABS: POTASSIUM 3.2 mmol/L (3.5-5.1)
[2024-02-25 02:35] LABS: BLOOD UREA NITROGEN 20.6 mg/dL (7-18); MAGNESIUM 2.5 mg/dL (1.8-2.4)
[2024-02-25 02:39] LABS: CREATININE 1.8 mg/dL (0.55-1.3)
[2024-02-25] MEDS ORDERED: diazePAM 5 MG TABLET PO PRN ×2 (03:43→03:46)
[2024-02-25] MEDS: SODIUM CHLORIDE 0.9%/KCL 20 MEQ/1,000 ML INFUS.BAG IV SCH (04:00)
[2024-02-25 05:03] LABS: EPI CELLS 21 /uL (0-25.1); HYALINE CASTS 30 /uL (0-3.1); PH,URINE 5.5 (5.0-8.0); URINE APPEARANCE CLOUDY; URINE BACTERIA 6 /uL (0-1359); URINE BILIRUBIN NEGATIVE (NEGATIVE); URINE COLOR DK YELLOW; URINE GLUCOSE (UA) NEGATIVE (NEGATIVE); URINE KETONE 2+ (NEGATIVE); URINE LEUK ESTERASE NEGATIVE (NEGATIVE); URINE NITRITE NEGATIVE (NEGATIVE); URINE PROTEIN 1+ (NEGATIVE); URINE RBC 13 /uL (0-23.9); URINE WBC 25 /uL (0-25.8)
[2024-02-25] MEDS ORDERED: LORazepam 1 MG TABLET PO PRN (07:34)
[2024-02-25] MEDS ORDERED: ACETAMINOPHEN 1000 MG/100 ML BAG IVPB PRN (07:39)
[2024-02-25] MEDS ORDERED: LORazepam 2 MG/ML SDV VIAL IVPUSH PRN (07:58)
[2024-02-25] MEDS: THIAMINE 100 MG TABLET PO SCH (09:36)
[2024-02-25] MEDS: MULTIVITAMINS (DAILY MVI) TABLET (FP) PO SCH (09:36)
[2024-02-25] MEDS: HEPARIN NA (PORCINE) 5,000 UNITS/ML 1ML VIAL SQ SCH (09:36)
[2024-02-25] MEDS: FOLIC ACID 1 MG TABLET (FP) PO SCH (09:36)
[2024-02-25] MEDS: LACTATED RINGERS SOLUTION 1,000 ML/1,000 ML INFUS.BAG IV SCH (17:29)
[2024-02-25] MEDS: BENZOCAINE/MENTH/CETYLPYRD CL 1 EACH LOZENGE MM PRN (17:30)
[2024-02-25] MEDS: MAG HYDROX/AL HYDROX/SIMETH 30 ML UNIT-DOSE CUP PO PRN (20:24)
[2024-02-25] MEDS: PANTOPRAZOLE SODIUM 40 MG VIAL IVPUSH SCH (21:45)
[2024-02-26 07:46] LABS: HEMATOCRIT 46.4 % (35.4-49); MCH 34.6 pg (25.7-33.7); MCHC 32.3 g/dl (32.0-35.9); MEAN CELL VOLUME 106.8 fl (80-96); PLATELET COUNT 183.8 10^3/uL (134-434); RBC 4.34 10^6/uL (4.00-5.60); RDW 14.2 % (11.9-15.9)
[2024-02-26 07:55] LABS: INR 0.95 (0.83-1.09); PROTHROMBIN TIME (PATIENT) 10.9 SEC (9.7-13.0)
[2024-02-26 09:03] LABS: ALBUMIN 4.2 g/dl (3.4-5.0); BILIRUBIN,TOTAL 1.2 mg/dl (0.2-1); CALCIUM 9.3 mg/dl (8.5-10.1); CREATININE 0.9 mg/dl (0.6-1.3); MAGNESIUM 2.3 mg/dL (1.8-2.4); PHOSPHOROUS 2.3 (2.5-4.9); POTASSIUM 3.4 mmol/L (3.5-5.1); TOT PROT 6.5 g/dl (6.4-8.2)
[2024-02-26] MEDS: POTASSIUM PHOSPHATE 15 MM in SODIUM CHLORIDE 250 ML IVPB ONE (11:05)
[2024-02-26] MEDS ORDERED: NAPH,MB-DB/K PH,MBDB POWDER PACKET PO ONE (11:38)
[2024-02-26] MEDS ORDERED: POTASSIUM CHLORIDE ORAL LIQUID 20 MEQ/15 ML PO ONE (11:38)
[2024-02-27 08:18] LABS: HEMATOCRIT 46.1 % (35.4-49); MCH 34.4 pg (25.7-33.7); MCHC 32.4 g/dl (32.0-35.9); MEAN CELL VOLUME 106.3 fl (80-96); MEAN PLT VOLUME 8.7 fl (7.5-11.1); PLATELET COUNT 174.3 10^3/uL (134-434); RBC 4.34 10^6/uL (4.00-5.60); WHITE BLOOD COUNT 7.5 10^3/uL (4.0-10.8)
[2024-02-27 08:37] LABS: ALK PHOS 52 U/L (45-117); ANION GAP 9 mmol/L (4-13); BILIRUBIN,TOTAL 0.8 mg/dl (0.2-1); CALCIUM 9.5 mg/dl (8.5-10.1); CHLORIDE 93 mmol/L (98-107); CO2 34 mmol/L (21-32); CREATININE 0.8 mg/dl (0.6-1.3); GLUCOSE,RANDOM 107 mg/dl (74-106); MAGNESIUM 2.1 mg/dL (1.8-2.4); PHOSPHOROUS 2.8 (2.5-4.9); POTASSIUM 3.5 mmol/L (3.5-5.1); SGOT/AST 99 U/L (15-37); SGPT/ALT 45 U/L (7-52); SODIUM 136 mmol/L (136-145); TOT PROT 6.1 g/dl (6.4-8.2)
[2024-02-27 09:58] VITALS: RESP 17
[2024-02-27 13:38] VITALS: BP 110/67; PULSE 107; TEMP 98.4
== END 2024-02-27 14:08 | disposition home or self-care (01) | DRG 897 ==
LOC: FER 16:09 → FM/S 19:37
PROVIDERS: ADMIT Internal Medicine
PROC: HZ2ZZZZ Detoxification Services for Substance Abuse Treatment (ICD-10-PCS; principal; 2024-02-24)
DX: F10.239 Alcohol dependence with withdrawal, unspecified (principal); N17.9 Acute kidney failure, unspecified; E87.3 Alkalosis; R11.2 Nausea with vomiting, unspecified; K21.9 Gastro-esophageal reflux disease without esophagitis; E83.42 Hypomagnesemia; E87.6 Hypokalemia; Y90.3 Blood alcohol level of 60-79 mg/100 ml; R00.0 Tachycardia, unspecified; R10.13 Epigastric pain; R80.9 Proteinuria, unspecified; K27.9 Peptic ulcer, site unspecified, unspecified as acute or chronic, without hemorrhage or perforation; F39 Unspecified mood [affective] disorder; G62.9 Polyneuropathy, unspecified
CPT/HCPCS: 36415; 80048; 80053; 80307; 81003; 82010; 83690; 83735; 84100; 84484; 85027; 85610; 93005; 99285-25; J0131

== ENCOUNTER 2024-03-27 11:25 | Observation (INO) | payer BC ==
[2024-03-27] MEDS ORDERED: ONDANSETRON 4 MG/2 ML VIAL ONE ×2 (11:54→15:39)
[2024-03-27] MEDS ORDERED: FAMOTIDINE 20 MG/50 ML IVPB 20 MG/50 ML MG IVPB ONE (11:54)
[2024-03-27] MEDS ORDERED: ACETAMINOPHEN INJECTION 100 ML IVPB ONE (11:55)
[2024-03-27 12:12] VITALS: BMI 26.8
[2024-03-27] MEDS: SODIUM CHLORIDE 0.9% 500 ML INFUS.BAG IV ONE ×3 (12:12→17:22)
[2024-03-27] MEDS: FAMOTIDINE 20 MG/50 ML IVPB 20 MG/50 ML MG IVPB ONE (12:12)
[2024-03-27] MEDS: ACETAMINOPHEN 1000 MG/100 ML BAG IVPB ONE (12:12)
[2024-03-27] MEDS: ONDANSETRON 4 MG/2 ML VIAL IVPUSH ONE ×2 (12:13→15:39)
[2024-03-27] MEDS ORDERED: METOCLOPRAMIDE HCL INJECTION 10 MG/2 ML VIAL ONE (13:00)
[2024-03-27] MEDS: METOCLOPRAMIDE HCL INJECTION 10 MG/2 ML VIAL IVPUSH ONE (13:04)
[2024-03-27 13:12] LABS: HEMATOCRIT 49.7 % (35.4-49); HEMOGLOBIN 16.7 G/dL (11.7-16.9); MCH 36.1 pg (25.7-33.7); MCHC 33.5 g/dl (32.0-35.9); MEAN CELL VOLUME 107.5 fl (80-96); MEAN PLT VOLUME 8.6 fl (7.5-11.1); RBC 4.62 10^6/uL (4.00-5.60); RDW 14.3 % (11.9-15.9); WHITE BLOOD COUNT 9.5 10^3/uL (4.0-10.8)
[2024-03-27 13:14] LABS: BILIRUBIN,TOTAL 0.7 mg/dl (0.2-1); CREATININE 0.9 mg/dl (0.6-1.3); MAGNESIUM 1.7 mg/dL (1.8-2.4); POTASSIUM 3.1 mmol/L (3.5-5.1); TOT PROT 7.6 g/dl (6.4-8.2)
[2024-03-27 13:22] LABS: PLATELET ESTIMATE ADEQUATE
[2024-03-27] MEDS: MAGNESIUM SULF 50% (8.12 MEQ/2 ML-1 GM VIAL) IVPB ONE (13:32)
[2024-03-27] MEDS ORDERED: MAGNESIUM 1GM/D5W - 1 GM/100 ML IVPB IVPB ONE (14:08)
[2024-03-27] MEDS ORDERED: ONDANSETRON 4 MG/2 ML VIAL IVPUSH PRN (18:03)
[2024-03-27] MEDS: KCL 10 MEQ IVPB 10 MEQ/100 ML INFUS.BAG IVPB SCH (21:10)
[2024-03-27 21:18] VITALS: RESP 18
[2024-03-28] MEDS ORDERED: LORazepam 1 MG TABLET PO PRN (07:38)
[2024-03-28 07:53] LABS: HEMATOCRIT 43.6 % (35.4-49); HEMOGLOBIN 14.4 G/dL (11.7-16.9); MCH 35.6 pg (25.7-33.7); MCHC 33.1 g/dl (32.0-35.9); MEAN CELL VOLUME 107.6 fl (80-96); PLATELET COUNT 188.6 10^3/uL (134-434); RBC 4.05 10^6/uL (4.00-5.60); RDW 14.1 % (11.9-15.9); WHITE BLOOD COUNT 10.1 10^3/uL (4.0-10.8)
[2024-03-28] MEDS: PANTOPRAZOLE 20 MG TABLET PO SCH (10:09)
[2024-03-28] MEDS: MULTIVITAMINS (DAILY MVI) TABLET (FP) PO SCH (10:09)
[2024-03-28] MEDS: THIAMINE 100 MG TABLET PO SCH (10:09)
[2024-03-28] MEDS: ENOXAPARIN NA (PORCINE) 40 MG/0.4 ML DISP.SYRIN SQ SCH (10:10)
[2024-03-28] MEDS ORDERED: MAGNESIUM SULF 50% (8.12 MEQ/2 ML-1 GM VIAL) IVPB ONE (10:25)
[2024-03-28] MEDS: MAGNESIUM 1GM/D5W - 1 GM/100 ML IVPB IVPB ONE (13:38)
[2024-03-28] MEDS: KCL 10 MEQ IVPB 10 MEQ/100 ML INFUS.BAG IVPB SCH ×2 (14:54→19:48)
[2024-03-29] MEDS: MAG HYDROX/AL HYDROX/SIMETH -MYLANTA- ORAL SUSPENSION PO ONE (06:02)
[2024-03-29 09:11] VITALS: BP 133/85; PULSE 88; TEMP 98.6
[2024-03-29] MEDS: MAG HYDROX/AL HYDROX/SIMETH 30 ML UNIT-DOSE CUP PO ONE (09:42)
== END 2024-03-29 16:04 | disposition home or self-care (01) ==
LOC: FER 11:25 → UNDOADMOB 18:00 → FM/S 18:00
PROVIDERS: ADMIT Internal Medicine
PROC: 3E033GC Introduction of Other Therapeutic Substance into Peripheral Vein, Percutaneous Approach (ICD-10-PCS; principal; 2024-03-27)
PROC: 3E033NZ Introduction of Analgesics, Hypnotics, Sedatives into Peripheral Vein, Percutaneous Approach (ICD-10-PCS; 2024-03-27)
PROC: 3E033GC Introduction of Other Therapeutic Substance into Peripheral Vein, Percutaneous Approach (ICD-10-PCS; 2024-03-27)
PROC: 3E0337Z Introduction of Electrolytic and Water Balance Substance into Peripheral Vein, Percutaneous Approach (ICD-10-PCS; 2024-03-27)
DX: K29.20 Alcoholic gastritis without bleeding (principal); E83.42 Hypomagnesemia; E87.6 Hypokalemia; E87.3 Alkalosis; F10.20 Alcohol dependence, uncomplicated; G62.1 Alcoholic polyneuropathy; F39 Unspecified mood [affective] disorder; F10.239 Alcohol dependence with withdrawal, unspecified; K21.9 Gastro-esophageal reflux disease without esophagitis; R10.9 Unspecified abdominal pain; Z95.5 Presence of coronary angioplasty implant and graft
CPT/HCPCS: 0241U-QW; 36415; 71045-TC-FY; 80053; 83690; 83735; 84484; 85027; 93005; 99285-25; G0378; J0131

== ENCOUNTER 2024-11-02 20:52 | Inpatient (IN) | payer OTHER ==
[2024-11-02 21:54] LABS: HEMATOCRIT 48.6 % (35.4-49); HEMOGLOBIN 16.9 G/dL (11.7-16.9); MCH 38.7 pg (25.7-33.7); MCHC 34.7 g/dl (32.0-35.9); MEAN CELL VOLUME 111.4 fl (80-96); MEAN PLT VOLUME 9.8 fl (7.5-11.1); PLATELET COUNT 179.4 10^3/uL (134-434); RBC 4.36 10^6/uL (4.00-5.60); RDW 14.7 % (11.9-15.9); WHITE BLOOD COUNT 12.3 10^3/uL (4.0-10.8)
[2024-11-02] MEDS ORDERED: LORazepam 2 MG/ML SDV VIAL ONE (22:00)
[2024-11-02] MEDS ORDERED: THIAMINE HCL 200 MG/2 ML VIAL ONE (22:00)
[2024-11-02] MEDS ORDERED: FOLIC ACID 5 MG/1 ML ONE (22:00)
[2024-11-02] MEDS ORDERED: MULTIVIT INJ. ADULT COMBO WITH VIT K 1 COMBO 10 ML VIAL IV ONE (22:01)
[2024-11-02] MEDS: FOLIC ACID INJECTION - 1 MG, THIAMINE HCL 100 MG, MULTIVIT INJECTION ADULT 10 ML in SOD... IVPB ONE (22:15)
[2024-11-02 22:54] LABS: INR 0.97 (0.83-1.09); PROTHROMBIN TIME (PATIENT) 11.1 SEC (9.7-13.0)
[2024-11-02 23:08] LABS: ALBUMIN 4.2 g/dl (3.4-5.0); ALK PHOS 59 U/L (45-117); ANION GAP 15 mmol/L (4-13); BILIRUBIN,TOTAL 1.5 mg/dl (0.2-1); CALCIUM 8.9 mg/dl (8.5-10.1); CHLORIDE 89 mmol/L (98-107); CO2 33 mmol/L (21-32); CREATININE 0.7 mg/dl (0.6-1.3); GLUCOSE,RANDOM 104 mg/dl (74-106); MAGNESIUM 1.6 mg/dL (1.8-2.4); PHOSPHOROUS 2.6 (2.5-4.9); SGOT/AST 51 U/L (15-37); SGPT/ALT 41 U/L (7-52); SODIUM 137 mmol/L (136-145); TOT PROT 6.7 g/dl (6.4-8.2)
[2024-11-02] MEDS ORDERED: MAGNESIUM SULFATE IN WATER 2 GM/50 ML IVPB IVPB ONE (23:14)
[2024-11-02] MEDS ORDERED: POTASSIUM CHLORIDE TABS 20 MEQ TABLET.ER (FP) PO ONE (23:15)
[2024-11-02] MEDS: MAGNESIUM SULFATE IN WATER 2 GM/50 ML IVPB IVPB ONE (23:15)
[2024-11-02] MEDS: POTASSIUM CHLORIDE TABS 20 MEQ TABLET.ER (FP) PO ONE (23:15)
[2024-11-03] MEDS ORDERED: ACETAMINOPHEN 500 MG TABLET (FP) ONE (02:36)
[2024-11-03] MEDS ORDERED: predniSONE 20 MG TABLET (UD) ONE (02:55)
[2024-11-03] MEDS: ACETAMINOPHEN 500 MG TABLET (FP) PO ONE (03:08)
[2024-11-03] MEDS: predniSONE 20 MG TABLET (UD) PO ONE (03:09)
[2024-11-03] MEDS: DEXTROSE 5%-NORMAL SALINE 1,000 ML IV ONE (03:20)
[2024-11-03 03:26] LABS: EPI CELLS 5 /uL (0-25.1); HYALINE CASTS 0 /uL (0-3.1); PH,URINE 8.5 (5.0-8.0); URINE APPEARANCE CLEAR; URINE BACTERIA 10 /uL (0-1359); URINE BILIRUBIN NEGATIVE (NEGATIVE); URINE COLOR DK YELLOW; URINE GLUCOSE (UA) NEGATIVE (NEGATIVE); URINE KETONE 1+ (NEGATIVE); URINE LEUK ESTERASE NEGATIVE (NEGATIVE); URINE NITRITE NEGATIVE (NEGATIVE); URINE PROTEIN 1+ (NEGATIVE); URINE RBC 25 /uL (0-23.9); URINE WBC 6 /uL (0-25.8)
[2024-11-03 05:48] VITALS: BMI 29.7
[2024-11-03 08:22] LABS: HEMATOCRIT 45.3 % (35.4-49); HEMOGLOBIN 15.4 G/dL (11.7-16.9); MCH 38.5 pg (25.7-33.7); MCHC 34.1 g/dl (32.0-35.9); MEAN PLT VOLUME 10.4 fl (7.5-11.1); PLATELET COUNT 169.3 10^3/uL (134-434); RBC 4.01 10^6/uL (4.00-5.60); RDW 14.2 % (11.9-15.9); WHITE BLOOD COUNT 9.9 10^3/uL (4.0-10.8)
[2024-11-03 08:45] LABS: ALBUMIN 4.2 g/dl (3.4-5.0); CALCIUM 8.7 mg/dl (8.5-10.1); CREATININE 0.8 mg/dl (0.6-1.3); MAGNESIUM 2.5 mg/dL (1.8-2.4); PHOSPHOROUS 1.9 (2.5-4.9); POTASSIUM 3.4 mmol/L (3.5-5.1); TOT PROT 6.5 g/dl (6.4-8.2)
[2024-11-03] MEDS: ESCITALOPRAM OXALATE 10 MG TABLET PO SCH (09:49)
[2024-11-03] MEDS: cloNIDine HCL 0.1 MG TABLET PO SCH (09:49)
[2024-11-03] MEDS: FOLIC ACID 1 MG TABLET (FP) PO SCH (09:49)
[2024-11-03] MEDS: POLYETHYLENE GLYCOL (HEALTHYLAX) 3350 17 GM PACKET PO SCH (09:49)
[2024-11-03] MEDS: PANTOPRAZOLE 40 MG TABLET PO SCH (09:49)
[2024-11-03] MEDS: THIAMINE 100 MG TABLET PO SCH (09:49)
[2024-11-03] MEDS: guaiFENesin/D-METHORPHAN HB 10 ML UNIT-DOSE CUPS PO PRN (09:50)
[2024-11-03] MEDS: LACTATED RINGERS SOLUTION 1,000 ML/1,000 ML INFUS.BAG IV SCH (09:50)
[2024-11-03 10:56] LABS: BILIRUBIN,TOTAL 1.3 mg/dl (0.2-1)
[2024-11-03] MEDS ORDERED: MAGNESIUM SULFATE IN WATER 2 GM/50 ML IVPB IVPB ONE (11:10)
[2024-11-03] MEDS ORDERED: POTASSIUM CHLORIDE TABS 20 MEQ TABLET.ER (FP) PO ONE (11:15)
[2024-11-03 11:30] LABS: PLATELET ESTIMATE ADEQUATE
[2024-11-03] MEDS ORDERED: GABAPENTIN 100 MG CAPSULE PO SCH (14:00)
[2024-11-03] MEDS: GABAPENTIN 100 MG CAPSULE PO SCH (14:29)
[2024-11-03] MEDS: POTASSIUM PHOSPHATE 15 MM in SODIUM CHLORIDE 250 ML IVPB ONE (14:29)
[2024-11-03] MEDS: MELATONIN 5 MG TABLETS PO ONE (22:33)
[2024-11-04 01:59] VITALS: RESP 18
[2024-11-04 08:38] LABS: ALBUMIN 3.5 g/dl (3.4-5.0); BILIRUBIN,TOTAL 0.7 mg/dl (0.2-1); CALCIUM 8.4 mg/dl (8.5-10.1); CREATININE 0.7 mg/dl (0.6-1.3); MAGNESIUM 1.8 mg/dL (1.8-2.4); PHOSPHOROUS 3.2 (2.5-4.9); POTASSIUM 3.5 mmol/L (3.5-5.1); TOT PROT 5.4 g/dl (6.4-8.2)
[2024-11-04 09:26] LABS: BASO % 0.3 % (0-2.0); EOS % 0.1 % (0-4.5); HEMATOCRIT 39.9 % (35.4-49); HEMOGLOBIN 13.8 GM/dL (11.7-16.9); MCH 37.9 pg (25.7-33.7); MCHC 34.5 g/dl (32.0-35.9); MEAN PLT VOLUME 9.2 fl (7.5-11.1); MONO % 10.9 % (3.8-10.2); NEUT % 64.7 % (42.8-82.8); PLATELET COUNT 160 10^3/uL (134-434); RBC 3.63 M/mm3 (4.00-5.60); WHITE BLOOD COUNT 7.2 K/mm3 (4.0-10.0)
[2024-11-04 09:47] VITALS: BP 138/76; PULSE 96; TEMP 98.6
== END 2024-11-04 13:30 | disposition home or self-care (01) | DRG 249 ==
LOC: FER 20:52 → FM/S 11-03 03:22 → OBSVTOIN 11-03 03:22 → FM/S 11-03 04:46 → UNDOADMOB 11-03 04:46
PROVIDERS: ADMIT Internal Medicine
DX: K52.9 Noninfective gastroenteritis and colitis, unspecified (principal); E87.20 Acidosis, unspecified; K21.9 Gastro-esophageal reflux disease without esophagitis; F10.10 Alcohol abuse, uncomplicated; R80.9 Proteinuria, unspecified; E83.42 Hypomagnesemia; E87.6 Hypokalemia; K59.00 Constipation, unspecified
CPT/HCPCS: 36415; 71045-TC-FY; 74177-TC; 80053; 81003; 82010; 82150; 82550; 83605; 83690; 83735; 84100; 84484; 85025; 85027; 85610; 93005; 99285-25; Q9967